=== PATIENT | female | born 1960 | race Caucasian/White ===

== ENCOUNTER 2024-02-14 18:52 | Emergency (ER) | payer OTHER, SELFPAY ==
[2024-02-14 19:46] VITALS: BP 174/94; PULSE 74; RESP 18; TEMP 36.6; O2SAT 98; BMI 22.4
--- NOTE | 2024-02-14 19:46 | ED.GENADULT ---
HPI - General Adult General Chief complaint: General Medical Stated complaint: high blood pressure 167/121 seen at Time Seen by Provider: 02/15/24 00:38 Source: patient Mode of arrival: ambulatory History of Present Illness ED Provider: Dr Linares HPI narrative: 63-year-old female with history of hypertension presents with headache in the triage note that she states for 2 weeks but she informs me that it was 2-3 days without any visual disturbance/speech changes and states that she is currently on medication that she is taking as prescribed. Patient also states that she has been having congestion, lost her voice. Related Data Allergies Allergy/AdvReac Type Severity Reaction Status Date / Time aspirin Allergy Anaphylaxis Verified 02/14/24 19:51 Penicillins [PCN] Allergy Unknown Verified 02/14/24 19:51 Sulfa (Sulfonamide Allergy Anaphylaxis Verified 02/14/24 19:51 Antibiotics) Review of Systems Review of Systems: Pertinent positives and negatives as stated in HPI [facility] Past Medical History Source: nursing notes reviewed Social History Social History Smoked in Last 30 Days: No Use of substances other than those prescribed or required for medical reasons: No Advance Directives: No Advance Directives Information Provided: No Patient : No Physical Exam ED Vital Signs: Vital Signs - 24 hr 02/14/24 19:46 02/14/24 23:12 02/14/24 23:58 Temperature 97.9 F 97.8 F 97.7 F Pulse Rate 74 85 73 Respiratory Rate 18 18 18 Blood Pressure 174/94 H 138/86 138/74 Pulse Oximetry 98 97 99 Oxygen Delivery Method Room Air Room Air Room Air 02/15/24 00:15 02/15/24 01:48 02/15/24 01:49 Temperature 96.9 F 98.0 F 98.0 F Pulse Rate 64 60 60 Respiratory Rate 18 18 18 Blood Pressure 141/84 H 162/89 H 162/89 H Pulse Oximetry 98 98 Oxygen Delivery Method Room Air Room Air BMI result Body Mass Index 22.4 VITAL SIGNS: Reviewed. GENERAL: Well developed, well nourished, in no acute distress. HEAD: Normocephalic/atraumatic EYES: PERRLA, EOMI EARS: Ext canals without abnormality, TMs non-bulging and non-erythematous NOSE: Nares patent bilateral OROPHARYNX: no oral lesions noted, posterior pharynx clear and non-erythematous without noted tonsillar enlargement/erythema/exudates NECK: Supple, no adenopathy LUNGS: Normal breath sounds. No adventitious sounds or accessory muscle use. SpO2<98> CARDIOVASCULAR: Regular rate and rhythm without noted murmurs ABDOMEN: Soft, non-tender, non-distended with bowel sounds. MUSCULOSKELETAL: No tenderness, deformities, or effusions noted on gross inspection. EXTREMITIES: No cyanosis, clubbing or edema. SKIN: Inspection of the skin reveals no rashes NEUROLOGIC: Alert and oriented x 4. Strength and sensation to light touch were grossly intact x 4. Course Course Course Narrative: This is an RME: Additional HPI, ROS, PE not included below will be deferred to primary provider. RME assessment and note performed by: Usha Martini PA-C This is a 65-[id number]-female, with a hx of HTN and polycystic kidney disease, who presents to the ER with complaints of sore throat x 1.5 weeks, headache x 2 weeks. Pt was seen at [facility] for her symptoms and was sent here due to symptoms, BP at urgent care was 158/109. BP is 174/94. She also is reporting sore throat. No fevers. Reporting that she Plan: Labs Medical Decision Making Medical Decision Making [facility] Narrative: 63-year-old female with history and clinical presentation, DDX: Viral illness, no focal findings, at the time my evaluation patient's blood pressure is well controlled and discussed with her following up with the primary care doctor for adjustment of her blood pressure medication. I reviewed all investigations and hematologic indices negative for leukocytosis/anemia or thrombocytopenia. Chemistries are negative for electrolyte or liver enzyme derangements and patient has known CKD secondary to polycystic kidney disease as endorsed by her. Urinalysis negative for UTI. Viral testing negative for influenza/RSV/COVID-19. My interpretation is patient experienced viral illness, with possible medication related hypertension such as decongestants and laryngitis. She is otherwise discharged home. Differential Diagnosis Differential Diagnoses: The differential diagnosis associated with the presentation includes Please see the discussion above Admission/Observation Consideration of admission/observation: Escalation of care including admission/observation considered Please see the discussion above Lab Data [facility] Lab Attestation statement: I reviewed the patient's lab results. Please see the discussion above 02/14/24 20:16 02/14/24 20:16 Labs: Lab Results 02/14/24 Range/Units 20:16 WBC 6.9 (4.8-10.8) X10*3/uL RBC 4.08 L (4.20-5.50) X10*6/uL Hgb 12.4 (12.0-16.0) g/dl Hct 36.8 L (37.0-47.0) % MCV 90.2 (80.0-98.0) fL MCH 30.4 (27.0-33.0) pg MCHC 33.7 (31.0-35.0) g/dl RDW 13.8 (11.0-16.0) % Plt Count 341 (160-400) X10*3/uL MPV 9.3 L (9.4-12.3) fL Immature Gran % (Auto) 0.4 (0.0-0.4) % Neut % (Auto) 59.4 (45-73) % Lymph % (Auto) 23.5 (20-40) % [place] % (Auto) 10.8 (2-11) % Eos % (Auto) 4.4 H (0-4) % Baso % (Auto) 1.5 (0-2) % Lymph # (Auto) 1.6 (1.2-4.9) X10*3/uL [place] # (Auto) 0.7 (0.1-1.2) X10*3/uL Eos # (Auto) 0.3 (0.0-0.4) X10*3/uL Baso # (Auto) 0.1 (0.0-0.2) X10*3/uL Abs Immat Gran (auto) 0.03 (0.00-0.03) X10*3/uL Absolute Neuts (auto) 4.1 (2.0-8.3) x10*3/uL Absolute Nucleated RBC 0.000 (0.0-0.012) X10*3/uL Nucleated RBC % (auto) 0.0 (0.0-0.2) /100WBC Sodium 143 (135-145) mmol/L Potassium 4.0 (3.3-5.1) mmol/L Chloride 104 (96-108) mmol/L Carbon Dioxide 28 (22-29) mmol/L Anion Gap 15 (12-20) BUN 30 H (9-16) mg/dL Creatinine 1.42 H (0.5-1.4) mg/dL Estim Creat Clear Calc 38.4 Estimated GFR 37 Random Glucose 94 (60-115) mg/dL Calcium 10.1 (8.4-10.2) mg/dL Total Bilirubin 0.4 (0.0-1.0) mg/dL Direct Bilirubin 0.1 (0.0-0.5) mg/dL AST 18 (5-31) U/L ALT 17 (0-31) U/L Alkaline Phosphatase 76 (39-117) U/L Total Protein 7.4 (6.5-8.0) g/dL Albumin 4.2 (3.5-5.0) g/dL Urine Color Yellow Urine Appearance Clear Urine pH 6.5 (5.0-9.0) Ur Specific [place] 1.015 (1.005-1.025) Urine Protein Negative (Neg-Trace) mg/dL Urine Glucose (UA) Negative (Negative) mg/dL Urine Ketones Negative (Negative) mg/dL Urine Blood Negative (Negative) Urine Nitrite Negative (Negative) Ur Leukocyte Esterase Small (1+) H (Negative) Urine RBC 0-2 (0-2) /HPF Urine WBC 0-5 (0-5) /HPF Ur Squamous Epith Cells 0-2 (0-2) /HPF Urine Bacteria None Seen (None Seen) Hyaline Casts 0-2 (0-2) /LPF Influenza Type A (PCR) NEGATIVE (Negative) Influenza Type B (PCR) NEGATIVE (Negative) RSV RNA Qual (PCR) NEGATIVE (Negative) SARS-CoV-2 RNA (RT-PCR) NEGATIVE (Negative) Chronic Conditions Patient?s care impacted by: Hypertension Discharge Plan Discharge Clinical Impression: Viral syndrome, Laryngitis Patient Disposition: Home, Self-Care Instructions: Laryngitis (ED), Viral Syndrome (ED) Additional Instructions: Follow-up with your primary care doctor to discuss possible blood pressure medication adjustment. Continue to take your medication as prescribed. Return to the ER for any worsening symptoms. Stand Alone Forms: Work/School Release Interventions: ED Discharge Assessment Last Done: 02/15/24 01:49 Discharge Date/Time: 02/15/24 01:50 Print Language: Tamazight
[2024-02-14 20:39] LABS: MANUAL DIFF FLAG NO
[2024-02-14 20:43] LABS: Appearance Urine Clear; Basophils Absolute Auto 0.1 X10*3/uL (0.0-0.2); Basophils Percent Auto 1.5 % (0-2); Color Urine Yellow; Eosinophils Absolute Auto 0.3 X10*3/uL (0.0-0.4); Eosinophils Percent Auto 4.4 % (0-4); Glucose Urine UA Negative (Negative); Hematocrit 36.8 % (37.0-47.0); Hemoglobin 12.4 g/dl (12.0-16.0); Imm Gran Abs Auto 0.03 X10*3/uL (0.00-0.03); Imm Gran Pct Auto 0.4 % (0.0-0.4); Leukocyte Esterase Urine Small (1+) (Negative); Lymphocytes Absolute Auto 1.6 X10*3/uL (1.2-4.9); Lymphocytes Percent Auto 23.5 % (20-40); Mean Corpuscular HGB Conc 33.7 g/dl (31.0-35.0); Mean Corpuscular Hemoglobin 30.4 pg (27.0-33.0); Mean Corpuscular Volume 90.2 fL (80.0-98.0); Mean Platelet Volume 9.3 fL (9.4-12.3); Monocytes Absolute Auto 0.7 X10*3/uL (0.1-1.2); Monocytes Percent Auto 10.8 % (2-11); Neutrophils Absolute Auto 4.1 x10*3/uL (2.0-8.3); Neutrophils Percent Auto 59.4 % (45-73); Nitrite Urine Negative (Negative); PH 6.5 (5.0-9.0); Platelet Count 341 X10*3/uL (160-400); Red Blood Count 4.08 X10*6/uL (4.20-5.50); Red Cell Distribution Width 13.8 % (11.0-16.0); Specific Gravity - Urine 1.015 (1.005-1.025); UMIC TRIGGER UACC YES; Urine Blood Negative (Negative); Urine Ketones Negative (Negative); Urine Protein Negative (Neg-Trace); White Blood Count 6.9 X10*3/uL (4.8-10.8)
[2024-02-14 20:58] LABS: Bacteria Urine None Seen (None Seen); Hyaline Casts Urine 0-2 /LPF (0-2); RBC Urine 0-2 /HPF (0-2); Squamous Epithelial Cell Urine 0-2 /HPF (0-2); UACC Culture Trigger YES; WBC Urine 0-5 /HPF (0-5)
[2024-02-14 21:04] LABS: Alanine Aminotransferase 17 U/L (0-31); Albumin Level 4.2 g/dL (3.5-5.0); Alkaline Phosphatase 76 U/L (39-117); Anion Gap 15 (12-20); Aspartate Amino Transferase 18 U/L (5-31); Bilirubin Direct 0.1 mg/dL (0.0-0.5); Bilirubin Total 0.4 mg/dL (0.0-1.0); Blood Urea Nitrogen 30 mg/dL (9-16); Calcium 10.1 mg/dL (8.4-10.2); Carbon Dioxide 28 mmol/L (22-29); Chloride 104 mmol/L (96-108); Creatinine Clr Calc Pharmacy 38.4; Estimated Glomerular Filt Rate 37; Glucose Random 94 mg/dL (60-115); Sodium 143 mmol/L (135-145); Total Protein 7.4 g/dL (6.5-8.0)
[2024-02-14 21:24] LABS: Influenza A PCR NEGATIVE (Negative); Influenza B PCR NEGATIVE (Negative); Resp Syncy Virus RNA Qual PCR NEGATIVE (Negative); SARS COV2 PCR INHOUSE NEGATIVE (Negative)
[2024-02-14 23:12] VITALS: BP 138/86; PULSE 85; RESP 18; TEMP 36.6; O2SAT 97
[2024-02-14 23:58] VITALS: BP 138/74; PULSE 73; RESP 18; TEMP 36.5; O2SAT 99
[2024-02-15 00:15] VITALS: BP 141/84; PULSE 64; RESP 18; TEMP 36.1
[2024-02-15 01:48] VITALS: BP 162/89; PULSE 60; RESP 18; TEMP 36.7; O2SAT 98
[2024-02-15 01:49] VITALS: BP 162/89; PULSE 60; RESP 18; TEMP 36.7; O2SAT 98
== END 2024-02-15 01:50 | disposition home or self-care (01) ==
PROVIDERS: Physician Assistant Medical; Emergency Provider Student in an Organized Health Care Education/Training Program
DX: J04.0 Acute laryngitis (principal); B34.9 Viral infection, unspecified; R51.9 Headache, unspecified; I10 Essential (primary) hypertension
CPT/HCPCS: 0241U; 80048; 80076; 81001; 85025; 87086; 99283; 99284

== ENCOUNTER 2024-12-25 21:42 | Emergency (ER) | payer MEDICAID, SELFPAY ==
[2024-12-25 22:03] VITALS: BP 143/105; PULSE 139; RESP 16; TEMP 37.2; O2SAT 98; BMI 24.0
--- NOTE | 2024-12-25 22:09 | ECG_ITS ---
Test Reason : tachycardia Blood Pressure : */* mmHG Vent. Rate : 125 BPM Atrial Rate : 125 BPM P-R Int : 158 ms QRS Dur : 74 ms QT Int : 278 ms P-R-T Axes : 47 98 24 degrees QTcB Int : 401 ms Sinus tachycardia Rightward axis cannot exclude old Anteroseptal infarct , age undetermined Abnormal ECG No previous ECGs available Referred By: Generic ED Physician Electronically Signed By: LEANN RYAN
[2024-12-25 22:28] LABS: MANUAL DIFF FLAG NO
[2024-12-25 22:29] LABS: Basophils Absolute Auto 0.1 X10*3/uL (0.0-0.2); Basophils Percent Auto 0.5 % (0-2); Eosinophils Absolute Auto 0.2 X10*3/uL (0.0-0.4); Eosinophils Percent Auto 1.4 % (0-4); Hematocrit 36.9 % (37.0-47.0); Hemoglobin 12.9 g/dl (12.0-16.0); Imm Gran Abs Auto 0.04 X10*3/uL (0.00-0.03); Imm Gran Pct Auto 0.4 % (0.0-0.4); Lymphocytes Absolute Auto 1.4 X10*3/uL (1.2-4.9); Lymphocytes Percent Auto 12.3 % (20-40); Mean Corpuscular Hemoglobin 30.6 pg (27.0-33.0); Mean Corpuscular Volume 87.4 fL (80.0-98.0); Mean Platelet Volume 9.4 fL (9.4-12.3); Monocytes Percent Auto 8.9 % (2-11); Neutrophils Absolute Auto 8.4 x10*3/uL (2.0-8.3); Neutrophils Percent Auto 76.5 % (45-73); Platelet Count 297 X10*3/uL (160-400); Red Blood Count 4.22 X10*6/uL (4.20-5.50); Red Cell Distribution Width 13.9 % (11.0-16.0)
[2024-12-25 22:30] LABS: Appearance Urine Turbid; Color Urine Yellow; Glucose Urine UA Negative (Negative); Leukocyte Esterase Urine Large (3+) (Negative); Nitrite Urine Negative (Negative); Specific Gravity - Urine 1.015 (1.005-1.025); UMIC TRIGGER UACC YES; Urine Blood Large (3+) (Negative); Urine Ketones Negative (Negative); Urine Protein 300 (3+) mg/dL (Neg-Trace)
[2024-12-25 22:35] LABS: Bacteria Urine 4+ (None Seen); Hyaline Casts Urine 0-2 /LPF (0-2); RBC Urine >20 /HPF (0-2); Squamous Epithelial Cell Urine 0-2 /HPF (0-2); UACC Culture Trigger YES; WBC Urine >50 /HPF (0-5)
[2024-12-25 22:44] LABS: Alanine Aminotransferase 14 U/L (0-31); Albumin Level 4.2 g/dL (3.5-5.0); Alkaline Phosphatase 72 U/L (39-117); Anion Gap 16 (12-20); Aspartate Amino Transferase 17 U/L (5-31); Bilirubin Total 0.4 mg/dL (0.0-1.0); Blood Urea Nitrogen 30 mg/dL (9-16); Calcium 9.8 mg/dL (8.4-10.2); Carbon Dioxide 25 mmol/L (22-29); Chloride 104 mmol/L (96-108); Creatinine Clr Calc Pharmacy 32.5; Estimated Glomerular Filt Rate 31; Glucose Random 105 mg/dL (60-115); Potassium 3.5 mmol/L (3.3-5.1); Sodium 141 mmol/L (135-145)
[2024-12-25 22:51] LABS: Troponin-I High Sensitivity 5.3 ng/L (<3.5-17.0)
--- NOTE | 2024-12-26 01:48 | ED.FEMALEGU ---
HPI - Female Genitourinary General Chief complaint: Urogenital-Female Stated complaint: urinating blood / dizzy / pain when urinating Time Seen by Provider: 12/25/24 23:20 Source: patient Limitations: no limitations History of Present Illness ED Provider: Karlie Fontana PA-C HPI Narrative: 64-year-old female presents with dysuria x2 days. Associated burning with urination, hematuria. Patient also has developed vaginal itching. Denies discharge. Denies abdominal pain, back pain, nausea, vomiting, fever. Related Data Previous Rx's ?Medication ?Instructions ?Recorded cephalexin 500 mg capsule 500 mg PO BID #13 caps 12/26/24 phenazopyridine 200 mg tablet 200 mg PO TID PRN pain #10 tabs 12/26/24 (Pyridium) Allergies Allergy/AdvReac Type Severity Reaction Status Date / Time aspirin Allergy Anaphylaxis Verified 12/25/24 22:06 Penicillins [PCN] Allergy Unknown Verified 12/25/24 22:06 Sulfa (Sulfonamide Allergy Anaphylaxis Verified 12/25/24 22:06 Antibiotics) Review of Systems Review of Systems: Yes all other systems are reviewed and are negative Constitutional: Constitutional: Denies fatigue and Denies fever(s) Cardiovascular: Cardiovascular: Denies chest pain Gastrointestinal: Gastrointestinal: Denies abdominal pain Genitourinary: Genitourinary: Reports hematuria, Reports dysuria, Denies flank pain and Reports vaginal pruritus Musculoskeletal: Musculoskeletal: Denies back pain Endocrine: Endocrine: Denies fatigue [facility] Past Medical History Attestation statement: The following information was validated with the patient. Social History Social History Advance Directives: No Advance Directives Information Provided: Yes Do you have a plan to hurt others: No Plan Physical Exam Vital Signs: Vital Signs: Last Vital Signs Temp 98.9 F 12/25/24 22:03 Pulse 139 H 12/25/24 22:03 Resp 16 12/25/24 22:03 BP 143/105 H 12/25/24 22:03 Pulse Ox 98 12/25/24 22:03 O2 Del Method Room Air 12/25/24 22:03 BMI result Body Mass Index 24.0 Const: Other: Alert well-appearing Orientation/consciousness: patient oriented x3 Resp: Effort & Inspection: normal respiratory effort Cardio: Other: Normal peripheral perfusion GI: Other: Abdomen is soft, nondistended no guarding : Other: External genitalia appears chafed, mildly erythematous no discharge noted General: Yes no CVA tenderness Back/Spine/Pelvis: Back: no CVA tenderness Skin: Other: Warm dry no rash Neuro: General: patient oriented x3, gait normal, no focal motor deficits and CN's II-XI intact bilaterally Psych: Other: Cooperative Medical Decision Making Medical Decision Making MDM Narrative: 64-year-old female with a history of kidney stones presents with dysuria x2 days. Associated burning with urination, hematuria. Patient also has developed vaginal itching. Denies discharge. Denies abdominal pain, back pain, nausea, vomiting, fever. Problem: Kidney stones History: Per patient I have considered the following differential diagnoses: Vaginal Vandana infection UTI, pyelonephritis, renal colic Plan: Screening labs including urinalysis were obtained from triage, the patient has a UTI. Her renal function is subtly bumped, but not an JESICA. She has no back or flank pain, no nausea vomiting to suggest renal colic. She has no CVA tenderness or fever to suggest pyelonephritis. She has suspect symptoms of vaginal candidal infection. We will be treating her for UTI, vaginitis. I have independently reviewed the following tests: Labs: Slight leukocytosis, not anemic, no electrolyte abnormality, creatinine subtly bumped from her baseline, urine infected Lab Data 12/25/24 22:21 12/25/24 22:21 Labs: Lab Results 12/25/24 Range/Units 22:21 WBC 11.0 H (4.8-10.8) X10*3/uL RBC 4.22 (4.20-5.50) X10*6/uL Hgb 12.9 (12.0-16.0) g/dl Hct 36.9 L (37.0-47.0) % MCV 87.4 (80.0-98.0) fL MCH 30.6 (27.0-33.0) pg MCHC 35.0 (31.0-35.0) g/dl RDW 13.9 (11.0-16.0) % Plt Count 297 (160-400) X10*3/uL MPV 9.4 (9.4-12.3) fL Immature Gran % (Auto) 0.4 (0.0-0.4) % Neut % (Auto) 76.5 H (45-73) % Lymph % (Auto) 12.3 L (20-40) % [place] % (Auto) 8.9 (2-11) % Eos % (Auto) 1.4 (0-4) % Baso % (Auto) 0.5 (0-2) % Lymph # (Auto) 1.4 (1.2-4.9) X10*3/uL [place] # (Auto) 1.0 (0.1-1.2) X10*3/uL Eos # (Auto) 0.2 (0.0-0.4) X10*3/uL Baso # (Auto) 0.1 (0.0-0.2) X10*3/uL Abs Immat Gran (auto) 0.04 H (0.00-0.03) X10*3/uL Absolute Neuts (auto) 8.4 H (2.0-8.3) x10*3/uL Absolute Nucleated RBC 0.000 (0.0-0.012) X10*3/uL Nucleated RBC % (auto) 0.0 (0.0-0.2) /100WBC Sodium 141 (135-145) mmol/L Potassium 3.5 (3.3-5.1) mmol/L Chloride 104 (96-108) mmol/L Carbon Dioxide 25 (22-29) mmol/L Anion Gap 16 (12-20) BUN 30 H (9-16) mg/dL Creatinine 1.66 H (0.5-1.4) mg/dL Estim Creat Clear Calc 32.5 Estimated GFR 31 Random Glucose 105 (60-115) mg/dL Calcium 9.8 (8.4-10.2) mg/dL Total Bilirubin 0.4 (0.0-1.0) mg/dL AST 17 (5-31) U/L ALT 14 (0-31) U/L Alkaline Phosphatase 72 (39-117) U/L Troponin I High Sens 5.3 (<3.5-17.0) ng/L Total Protein 7.0 (6.5-8.0) g/dL Albumin 4.2 (3.5-5.0) g/dL Urine Color Yellow Urine Appearance Turbid Urine pH 6.0 (5.0-9.0) Ur Specific [place] 1.015 (1.005-1.025) Urine Protein 300 (3+) H (Neg-Trace) mg/dL Urine Glucose (UA) Negative (Negative) mg/dL Urine Ketones Negative (Negative) mg/dL Urine Blood Large (3+) H (Negative) Urine Nitrite Negative (Negative) Ur Leukocyte Esterase Large (3+) H (Negative) Urine RBC >20 H (0-2) /HPF Urine WBC >50 H (0-5) /HPF Ur Squamous Epith Cells 0-2 (0-2) /HPF Urine Bacteria 4+ (None Seen) Hyaline Casts 0-2 (0-2) /LPF Discharge Plan Discharge Clinical Impression: Urinary tract infection, Candidiasis of vagina Patient Disposition: Home, Self-Care Instructions: Urinary Tract Infection in Women (ED), Yeast Infection (ED) Additional Instructions: You were found to have a urinary tract infection and a vaginal yeast infection. See home care instructions. You were given a 1 time dose of antifungal medication here in the emergency department. You can purchase [id number] vaginal yeast infection cream at any pharmacy. Take the cephalexin as directed for your urinary tract infection. Use the Pyridium as needed for urinary pain. Follow up with your primary care provider as needed. Prescriptions: New phenazopyridine [Pyridium] 200 mg tablet 200 mg PO TID PRN (Reason: pain) Qty: 10 0RF cephalexin 500 mg capsule 500 mg PO BID Qty: 13 0RF Print Language: Guamanian
[2024-12-26] MEDS: cephALEXin 500 MG CAPSULE PO (02:19)
[2024-12-26] MEDS: Fluconazole 150 MG TABLET PO (02:19)
[2024-12-26] MEDS: Phenazopyridine HCL 200 MG TABLET PO (02:19)
[2024-12-26 02:24] VITALS: BP 135/93; PULSE 91; RESP 18; TEMP 36.7; O2SAT 97
[2024-12-26 02:26] VITALS: BP 135/93; PULSE 91; RESP 18; TEMP 36.7; O2SAT 97
== END 2024-12-26 02:27 | disposition home or self-care (01) ==
PROVIDERS: Emergency Provider Emergency Medicine; PCP Psychiatry & Neurology Behavioral Neurology & Neuropsychiatry
DX: N39.0 Urinary tract infection, site not specified (principal); B37.31 Acute candidiasis of vulva and vagina; R31.9 Hematuria, unspecified; R00.0 Tachycardia, unspecified; L29.2 Pruritus vulvae; R42 Dizziness and giddiness; R30.0 Dysuria; Z79.899 Other long term (current) drug therapy
CPT/HCPCS: 36415; 80053; 81001; 84484; 85025; 87086; 87088; 87186; 93005; 99283; 99285

== ENCOUNTER → 2024-12-25 22:09 | Outpatient (BNV) | payer MEDICAID, SELFPAY | PROVIDERS: Emergency Provider Emergency Medicine; PCP Psychiatry & Neurology Behavioral Neurology & Neuropsychiatry; Visit Provider Internal Medicine | DX: R00.0 Tachycardia, unspecified (principal) | CPT/HCPCS: 93010 ==

== ENCOUNTER 2024-12-28 10:58 | Emergency (ER) | payer MEDICAID, SELFPAY ==
[2024-12-28] VITALS (7 sets, daily range): BP systolic 130–162; BP diastolic 88–112; PULSE 95–133; RESP 15–20; TEMP 36.5–37.4; O2SAT 94–99; BMI 22.8
--- NOTE | 2024-12-28 | ECG_ITS ---
Test Reason : TACHY Blood Pressure : */* mmHG Vent. Rate : 127 BPM Atrial Rate : 127 BPM P-R Int : 156 ms QRS Dur : 90 ms QT Int : 290 ms P-R-T Axes : 16 -37 27 degrees QTcB Int : 421 ms Sinus tachycardia Left axis deviation Possible Anterior infarct (cited on or before 25-Dec-2024) Abnormal ECG When compared with ECG of 25-Dec-2024 22:12, QRS axis Shifted left Referred By: Elenita Chun Electronically Signed By: LEANN RYAN
--- NOTE | ~2024-12-28 | CT_ITS ---
EXAMINATION: CT ABDOMEN PELVIS WITHOUT IV CONTRAST HISTORY: L flank pain. UTI white count COMPARISON: There are no prior studies for comparison. TECHNIQUE: CT scan of the abdomen and pelvis was performed without contrast using standard departmental protocol. Coronal and sagittal reformatted images were generated and reviewed. Oral contrast material was not administered per department protocol. This CT exam was performed with one or more of the following dose reduction techniques: automated exposure control, adjustment of the mA and/or kV according to patient size, use of iterative reconstruction technique. DLP: 459 mGy-cm FINDINGS: LOWER CHEST: The visualized lung bases are clear. There is no pleural effusion. CARDIOVASCULATURE: The heart is normal in size. There is no pericardial effusion. LIVER: The liver is normal in size and contour. There is a 3.3 cm cyst in the right lobe. Additional smaller cysts are noted. GALLBLADDER / BILE DUCTS: The gallbladder is surgically absent. There is no intra or extrahepatic biliary ductal dilatation. SPLEEN: The spleen is normal in size and has an unremarkable unenhanced appearance. PANCREAS: The pancreas has an unremarkable unenhanced appearance. ADRENAL GLANDS: Unremarkable. KIDNEYS/RETROPERITONEUM: Innumerable bilateral renal cysts are noted and cystoscopy with polycystic kidney disease. The largest cyst on the right measures 5.5 cm in size. The largest cyst on the left measures 8.4 cm in size. Scattered calcifications in both kidneys may be related to cyst mccoy. There is no hydronephrosis. The ureters are normal in caliber. No ureteral calculi are identified. LYMPH NODES: No retroperitoneal lymphadenopathy is identified in the abdomen or pelvis. VASCULATURE: The abdominal aorta is normal in caliber. MESENTERY/PERITONEUM: No free fluid. No masses. There is no free intraperitoneal gas. STOMACH: The stomach is collapsed, limiting evaluation. SMALL BOWEL: The small bowel is normal in caliber. COLON: The colon is unremarkable. APPENDIX: Normal. URINARY BLADDER/PELVIC ORGANS: The urinary bladder is collapsed, limiting evaluation. There are numerous calcified masses in the uterus measuring up to 7.1 cm in size, consistent with fibroids. BONES / SOFT TISSUES: No suspicious bony or soft tissue abnormalities. CT/CT abdomen pelvis wo IV con IMPRESSION: 1. Polycystic kidney disease. No definite evidence of nephrolithiasis or ureteral obstruction. 2. Fibroid uterus as described. Electronically signed by: Maciej Hassan MD 12/28/2024 02:03 PM EDT RP
--- NOTE | 2024-12-28 11:12 | ED.GENADULT ---
HPI - General Adult General Chief complaint: Urogenital-Female Stated complaint: urine infection back pain hard to walk Time Seen by Provider: 12/28/24 13:06 Source: patient Mode of arrival: ambulatory Limitations: no limitations History of Present Illness ED Provider: ELENITA CHUN PA-C HPI narrative: 64 year old female with pmhx significant for polycystic kidney disease, GERD, HTN presents to the ED today for evaluation of left flank pain x24 hours. No radiation. She reports associated suprapubic abdominal discomfort. Reports nausea with one episode of vomiting on arrival to ED. Denies any fever, chills, diarrhea, constipation, vaginal discharge or bleeding. She reports history of uterine fibroids. She was evaluated at our facility on 12/26/24 for dysuria and hematuria. She was diagnosed with a UTI at that time. She was discharged home on keflex and pyridium. She states she has been taking pyridium however never picked up or started her antibiotic. Related Data Previous Rx's ?Medication ?Instructions ?Recorded cephalexin 500 mg capsule 500 mg PO BID #13 caps 12/26/24 phenazopyridine 200 mg tablet 200 mg PO TID PRN pain #10 tabs 12/26/24 (Pyridium) cefpodoxime 200 mg tablet 200 mg PO BID 10 days #20 tabs 12/28/24 Allergies Allergy/AdvReac Type Severity Reaction Status Date / Time aspirin Allergy Anaphylaxis Verified 12/28/24 11:11 Iodinated Contrast Media Allergy Anaphylaxis Verified 12/28/24 13:20 [IV Contrast Dye] parsley Allergy Facial Verified 12/28/24 11:13 Swelling Penicillins [PCN] Allergy Unknown Verified 12/28/24 11:11 Sulfa (Sulfonamide Allergy Anaphylaxis Verified 12/28/24 11:11 Antibiotics) Review of Systems Review of Systems: Yes all other systems are reviewed and are negative PMFSH Past Medical History Attestation statement: The following information was validated with the patient. Source: old records reviewed and nursing notes reviewed Social History Social History Unable to assess alcohol history related to: Unknown Use of substances other than those prescribed or required for medical reasons: Unknown Advance Directives: No Advance Directives Information Provided: Yes Do you have a plan to hurt others: No Plan Patient : No Physical Exam ED Vital Signs: Vital Signs - 24 hr 12/28/24 11:03 12/28/24 13:55 12/28/24 13:57 Temperature 97.7 F 99.3 F Pulse Rate 99 133 H Respiratory Rate 20 16 Blood Pressure 162/112 H 144/101 H 144/101 H Pulse Oximetry 99 94 Oxygen Delivery Method Room Air Room Air 12/28/24 15:06 12/28/24 15:48 12/28/24 16:35 Temperature 98.2 F Pulse Rate 95 98 Respiratory Rate 18 15 Blood Pressure 130/88 Pulse Oximetry 97 Oxygen Delivery Method Room Air 12/28/24 16:44 Temperature 98.2 F Pulse Rate 95 Respiratory Rate 15 Blood Pressure 130/88 Pulse Oximetry 97 Oxygen Delivery Method Room Air BMI result Body Mass Index 22.8 vital signs stable, afebrile General: Well appearing, in no acute distress. Skin: Warm, dry, intact. No rashes or lesions. Head: Normocephalic, atraumatic. EENT: Hearing is intact b/l. Conjunctiva clear. PERRLA. EOM intact. Moist mucous membranes.? Cardiac: Chest wall symmetric. RRR Lungs: Normal respiratory effort without accessory muscle use. CTA bilaterally. Abdomen: soft, non-tender, non-distended. No rebound tenderness or guarding. Positive BS x4. +left cvat. Back: No midline spinous or paraspinal tenderness. No step off deformity. Ext: Upper and lower extremities atraumatic, without tenderness, deformity, swelling or erythema Neuro: AOx3. Normal speech. Ambulating with steady gait Course Course Course Narrative: This is a rapid medical exam performed by Emmanuel Díaz NP: Additional HPI, ROS, PE not included below will be deferred to primary provider. 12/28/24 11:12 Patient is a 64-year-old female with history of polycystic kidneys presenting with complaint of lower back and left flank pain. Seen here 12/26 discharged on keflex and pyridium. Urine cx shows e. coli susceptible to cephalosporins. Plan: labs, UA Reevaluation(s) Reevaluation #1: CBC with slight leukocytosis to 11.3 with left shift. No anemia. H&H stable. Chemistry without acute electrolyte abnormality requiring intervention. Her renal function is around her baseline white count for polycystic kidney disease. Liver function WNL. Lactic acid WNL at 1.4. Urine shows moderate amount of blood, positive nitrites, large leukocyte esterase, over 20 RBCs, over 50 WBCs, 0-2 squamous epithelial cells and 4+ urine bacteria. No clumps. CT abdomen/pelvis shows innumerable bilateral renal cyst noted suggestive of polycystic kidney disease, largest cyst on the right measuring 5.5 cm and largest cyst on the left measuring 8.4 cm. Scattered calcifications in both kidneys, no hydronephrosis, no ureteral calculi or obstruction. No bowel obstruction. Normal appendix. Bladder unremarkable. There are numerous calcified masses in the uterus measuring up to 7.1 cm in size consistent with fibroids. > pain well-controlled with Tylenol, Dilaudid and lidocaine patch. Blood pressure improved with home dose of amlodipine. Given positive UTI with left CVAT, will treat for suspected pyelonephritis. One dose of IV ceftriaxone and IVF given in the ED. Will send her home on a course of cefpodoxime. Patient is agreeable. Patient has remained stable throughout ED visit today. Discussed worrisome signs and symptoms and when to return to the ED. All questions answered at this time. Patient is agreeable with disposition and stable for discharge. Medications Administered Discontinued Medications Generic Name Dose Route Start Last Admin Trade Name Freq PRN Reason Stop Dose Admin Acetaminophen 975 mg 12/28/24 12:15 12/28/24 12:18 Acetaminophen 325 Mg Tablet PO 12/28/24 12:16 975 mg ONCE ONE Administration Amlodipine Besylate 2.5 mg 12/28/24 13:27 12/28/24 13:57 Amlodipine Besylate 2.5 Mg Tablet PO 12/28/24 13:28 2.5 mg ONCE ONE Administration Protocol Ceftriaxone Sodium 1 gm 12/28/24 15:00 12/28/24 15:06 Ceftriaxone Sodium 1 Gm Vial IVPUSH 12/28/24 15:01 1 gm ONCE ONE Administration Cyclobenzaprine HCl 10 mg 12/28/24 14:29 12/28/24 14:40 Cyclobenzaprine Hcl 10 Mg Tablet PO 12/28/24 14:30 10 mg ONCE ONE Administration Hydromorphone HCl 0.5 mg 12/28/24 15:01 12/28/24 15:06 Hydromorphone Hcl 0.5 Mg/0.5 Ml Syringe IVPUSH 12/28/24 15:02 0.5 mg ONCE ONE Administration Protocol Sodium Chloride 1,000 mls @ 999 mls/hr 12/28/24 15:00 12/28/24 15:06 Ns IV 12/28/24 16:00 999 mls/hr .Q1H1M WINIFRED Administration Lidocaine 1 patch 12/28/24 14:29 12/28/24 14:40 Lidocaine 4 % Patch Adh..Patch TRANSDERMA 12/28/24 14:30 1 patch ONCE ONE Administration Protocol Ondansetron HCl 4 mg 12/28/24 14:01 12/28/24 14:26 Ondansetron Hcl 4 Mg/2 Ml Vial IVPUSH 12/28/24 14:02 4 mg ONCE ONE Administration Medical Decision Making Medical Decision Making [facility] Narrative: 64 year old female with pmhx significant for polycystic kidney disease, GERD, HTN presents to the ED today for evaluation of left flank pain x24 hours. Vital signs stable. She is nontoxic appearing in no acute distress. On exam, abdomen is soft, nondistended, nontender to palpation without rebound tenderness or guarding. There is left-sided CVAT. Differential diagnosis includes renal colic, nephrolithiasis, pyelonephritis, gastroenteritis, gastritis, PUD. Abdominal exam without peritoneal signs. No evidence of acute abdomen at this time. Well appearing. Less likely to represent acute pancreatitis, perforated ulcer/ GI bleed, acute infectious processes (pneumonia), vascular catastrophe, bowel obstruction or viscus perforation. Presentation not consistent with other acute, emergent causes of abdominal pain at this time. Plan: labs, UA, pain control, CT a/p, serial reassessment Differential Diagnosis Differential Diagnoses: The differential diagnosis associated with the presentation includes As above Admission/Observation Not indicated Lab Data [facility] Lab Attestation statement: I reviewed the patient's lab results. As above 12/28/24 11:25 12/28/24 11:25 Labs: Lab Results 12/28/24 Range/Units 11:25 WBC 11.3 H (4.8-10.8) X10*3/uL RBC 4.51 (4.20-5.50) X10*6/uL Hgb 13.6 (12.0-16.0) g/dl Hct 40.1 (37.0-47.0) % MCV 88.9 (80.0-98.0) fL MCH 30.2 (27.0-33.0) pg MCHC 33.9 (31.0-35.0) g/dl RDW 13.9 (11.0-16.0) % Plt Count 305 (160-400) X10*3/uL MPV 9.7 (9.4-12.3) fL Immature Gran % (Auto) 0.4 (0.0-0.4) % Neut % (Auto) 80.7 H (45-73) % Lymph % (Auto) 7.8 L (20-40) % [place] % (Auto) 9.3 (2-11) % Eos % (Auto) 1.3 (0-4) % Baso % (Auto) 0.5 (0-2) % Lymph # (Auto) 0.9 L (1.2-4.9) X10*3/uL [place] # (Auto) 1.1 (0.1-1.2) X10*3/uL Eos # (Auto) 0.2 (0.0-0.4) X10*3/uL Baso # (Auto) 0.1 (0.0-0.2) X10*3/uL Abs Immat Gran (auto) 0.05 H (0.00-0.03) X10*3/uL Absolute Neuts (auto) 9.1 H (2.0-8.3) x10*3/uL Absolute Nucleated RBC 0.000 (0.0-0.012) X10*3/uL Nucleated RBC % (auto) 0.0 (0.0-0.2) /100WBC Sodium 144 (135-145) mmol/L Potassium 3.4 (3.3-5.1) mmol/L Chloride 103 (96-108) mmol/L Carbon Dioxide 28 (22-29) mmol/L Anion Gap 16 (12-20) BUN 30 H (9-16) mg/dL Creatinine 1.46 H (0.5-1.4) mg/dL Estim Creat Clear Calc 36.9 Estimated GFR 36 Random Glucose 109 (60-115) mg/dL Lactic Acid 1.4 (0.5-2.0) mmol/L Calcium 10.0 (8.4-10.2) mg/dL Total Bilirubin 0.6 (0.0-1.0) mg/dL AST 17 (5-31) U/L ALT 14 (0-31) U/L Alkaline Phosphatase 79 (39-117) U/L Total Protein 7.8 (6.5-8.0) g/dL Albumin 4.5 (3.5-5.0) g/dL Urine Color [place] Urine Appearance Turbid Urine pH 6.0 (5.0-9.0) Ur Specific [place] 1.020 (1.005-1.025) Urine Protein 300 (3+) H (Neg-Trace) mg/dL Urine Glucose (UA) Negative (Negative) mg/dL Urine Ketones Negative (Negative) mg/dL Urine Blood Moderate (2+) H (Negative) Urine Nitrite Positive H (Negative) Ur Leukocyte Esterase Large (3+) H (Negative) Urine RBC >20 H (0-2) /HPF Urine WBC >50 H (0-5) /HPF Ur Squamous Epith Cells 0-2 (0-2) /HPF Urine Bacteria 4+ (None Seen) Hyaline Casts 0-2 (0-2) /LPF Independent Interpretation I performed an independent interpretation of an: EKG and CT Scan Interpretation: EKG showing sinus tachycardia with a rate of 127 beats per minute, QT to 90, QTC 421, no acute ischemic changes or ST elevation CT abdomen/pelvis showing multiple cysts to bilateral kidneys Radiology Impression Discussion of test interpretation with radiology: I have reviewed the radiologist's reading. Radiologist Impression: Procedure(s): CT abdomen pelvis wo IV con Accession Number(s): [id number] cc: Elenita Chun; CASSY SANON MD~ Report Number: [id number]: Total DLP = 459.00 mGy-cm EXAMINATION: CT ABDOMEN PELVIS WITHOUT IV CONTRAST HISTORY: L flank pain. UTI white count COMPARISON: There are no prior studies for comparison. TECHNIQUE: CT scan of the abdomen and pelvis was performed without contrast using standard departmental protocol. Coronal and sagittal reformatted images were generated and reviewed. Oral contrast material was not administered per department protocol. This CT exam was performed with one or more of the following dose reduction techniques: automated exposure control, adjustment of the mA and/or kV according to patient size, use of iterative reconstruction technique. DLP: 459 mGy-cm FINDINGS: LOWER CHEST: The visualized lung bases are clear. There is no pleural effusion. CARDIOVASCULATURE: The heart is normal in size. There is no pericardial effusion. LIVER: The liver is normal in size and contour. There is a 3.3 cm cyst in the right lobe. Additional smaller cysts are noted. GALLBLADDER / BILE DUCTS: The gallbladder is surgically absent. There is no intra or extrahepatic biliary ductal dilatation. SPLEEN: The spleen is normal in size and has an unremarkable unenhanced appearance. PANCREAS: The pancreas has an unremarkable unenhanced appearance. ADRENAL GLANDS: Unremarkable. KIDNEYS/RETROPERITONEUM: Innumerable bilateral renal cysts are noted and cystoscopy with polycystic kidney disease. The largest cyst on the right measures 5.5 cm in size. The largest cyst on the left measures 8.4 cm in size. Scattered calcifications in both kidneys may be related to cyst mccoy. There is no hydronephrosis. The ureters are normal in caliber. No ureteral calculi are identified. LYMPH NODES: No retroperitoneal lymphadenopathy is identified in the abdomen or pelvis. VASCULATURE: The abdominal aorta is normal in caliber. MESENTERY/PERITONEUM: No free fluid. No masses. There is no free intraperitoneal gas. STOMACH: The stomach is collapsed, limiting evaluation. SMALL BOWEL: The small bowel is normal in caliber. COLON: The colon is unremarkable. APPENDIX: Normal. URINARY BLADDER/PELVIC ORGANS: The urinary bladder is collapsed, limiting evaluation. There are numerous calcified masses in the uterus measuring up to 7.1 cm in size, consistent with fibroids. BONES / SOFT TISSUES: No suspicious bony or soft tissue abnormalities. CT/CT abdomen pelvis wo IV con IMPRESSION: 1. Polycystic kidney disease. No definite evidence of nephrolithiasis or ureteral obstruction. 2. Fibroid uterus as described. Electronically signed by: Maciej Hassan MD 12/28/2024 02:03 PM EDT External Record Review External record reviewed: Inpatient record Prescription Management I considered prescription management with: Pain Medication and Antibiotic (Cefpodoxime) Chronic Conditions Patient?s care impacted by: Other (PCKD, uterine fibroids) Social Determinants Patient?s care significantly limited by Social Determinants of Health including: Other Social Determinant of Health Critical Care Time Critical Care Time Critical Care Time: No Discharge Plan Discharge Clinical Impression: Urinary tract infection Patient Disposition: Home, Self-Care Instructions: Urinary Tract Infection in Older Adults (ED) Additional Instructions: Your blood work today is reassuring. The CT scan of your abdomen shows numerous cysts on your kidneys consistent with polycystic kidney disease. It also shows numerous fibroids within your uterus. You are aware of both of these findings. Please follow up with your outpatient providers. Your CT scan is otherwise normal. You have a urinary tract infection. Often times, this infection can move up to your kidneys. I am sending an antibiotic (cefpodoxime) to your pharmacy. Take this twice daily for 10 days as prescribed. Take this antibiotic to completion. Do not skip any doses. Please follow up with your outpatient providers. Follow up with your primary care provider. Return with new or worsening symptoms. In the case of an emergency call 911. Prescriptions: New cefpodoxime 200 mg tablet 200 mg PO BID 10 Days Qty: 20 0RF Rx Instructions: must administer with a meal/food No Action phenazopyridine [Pyridium] 200 mg tablet 200 mg PO TID PRN (Reason: pain) Qty: 10 0RF cephalexin 500 mg capsule 500 mg PO BID Qty: 13 0RF Referrals: [facility] [place] [facility] [place]Provider Group] [facility] [place] [facility] [Provider Group] [facility] [place] [facility] [Provider Group] Stand Alone Forms: Work/School Release Interventions: ED Discharge Assessment Last Done: 12/28/24 16:44 Discharge Date/Time: 12/28/24 16:44 Print Language: Uzbek
[2024-12-28 11:35] LABS: MANUAL DIFF FLAG NO
[2024-12-28 11:37] LABS: Appearance Urine Turbid; Color Urine Orange; Glucose Urine UA Negative (Negative); Leukocyte Esterase Urine Large (3+) (Negative); Nitrite Urine Positive (Negative); UMIC TRIGGER UACC YES; Urine Blood Moderate (2+) (Negative); Urine Ketones Negative (Negative); Urine Protein 300 (3+) mg/dL (Neg-Trace)
[2024-12-28 11:41] LABS: Bacteria Urine 4+ (None Seen); Hyaline Casts Urine 0-2 /LPF (0-2); RBC Urine >20 /HPF (0-2); Squamous Epithelial Cell Urine 0-2 /HPF (0-2); UACC Culture Trigger YES; WBC Urine >50 /HPF (0-5)
[2024-12-28 11:55] LABS: Basophils Absolute Auto 0.1 X10*3/uL (0.0-0.2); Basophils Percent Auto 0.5 % (0-2); Eosinophils Absolute Auto 0.2 X10*3/uL (0.0-0.4); Eosinophils Percent Auto 1.3 % (0-4); Hematocrit 40.1 % (37.0-47.0); Hemoglobin 13.6 g/dl (12.0-16.0); Imm Gran Abs Auto 0.05 X10*3/uL (0.00-0.03); Imm Gran Pct Auto 0.4 % (0.0-0.4); Lymphocytes Absolute Auto 0.9 X10*3/uL (1.2-4.9); Lymphocytes Percent Auto 7.8 % (20-40); Mean Corpuscular HGB Conc 33.9 g/dl (31.0-35.0); Mean Corpuscular Hemoglobin 30.2 pg (27.0-33.0); Mean Corpuscular Volume 88.9 fL (80.0-98.0); Mean Platelet Volume 9.7 fL (9.4-12.3); Monocytes Absolute Auto 1.1 X10*3/uL (0.1-1.2); Monocytes Percent Auto 9.3 % (2-11); Neutrophils Absolute Auto 9.1 x10*3/uL (2.0-8.3); Neutrophils Percent Auto 80.7 % (45-73); Platelet Count 305 X10*3/uL (160-400); Red Blood Count 4.51 X10*6/uL (4.20-5.50); Red Cell Distribution Width 13.9 % (11.0-16.0); White Blood Count 11.3 X10*3/uL (4.8-10.8)
[2024-12-28 11:59] LABS: Alanine Aminotransferase 14 U/L (0-31); Albumin Level 4.5 g/dL (3.5-5.0); Alkaline Phosphatase 79 U/L (39-117); Anion Gap 16 (12-20); Aspartate Amino Transferase 17 U/L (5-31); Bilirubin Total 0.6 mg/dL (0.0-1.0); Blood Urea Nitrogen 30 mg/dL (9-16); Carbon Dioxide 28 mmol/L (22-29); Chloride 103 mmol/L (96-108); Creatinine Clr Calc Pharmacy 36.9; Estimated Glomerular Filt Rate 36; Glucose Random 109 mg/dL (60-115); Potassium 3.4 mmol/L (3.3-5.1); Sodium 144 mmol/L (135-145); Total Protein 7.8 g/dL (6.5-8.0)
[2024-12-28 12:02] LABS: Lactic Acid 1.4 mmol/L (0.5-2.0)
[2024-12-28] MEDS: Acetaminophen 325 MG TABLET 975 MG PO (12:18)
[2024-12-28] MEDS: amLODIPine Besylate 2.5 MG TABLET PO (13:57)
[2024-12-28] MEDS: ondansetron HCL 4 MG/2 ML VIAL IVPUSH (14:26)
[2024-12-28] MEDS: Lidocaine 4 % Patch ADH..PATCH 1 PATCH TRANSDERMA (14:40)
[2024-12-28] MEDS: Cyclobenzaprine HCl 10 MG TABLET PO (14:40)
[2024-12-28] MEDS: HYDROmorphone HCl 0.5 MG/0.5 ML SYRINGE IVPUSH (15:06)
[2024-12-28] MEDS: 0.9 % Sodium Chloride 1,000 ML 999 ML IV (15:06)
[2024-12-28] MEDS: cefTRIAXone sodium 1 GM VIAL IVPUSH (15:06)
--- OUTSIDE RECORDS SUMMARY | 2024-12-28 16:01 | XMS_ITS | Clinical Summary ---
Author Organization [address] Building Address [address] [place] [address] Phone Care Team Providers Care Adjuster Arbitrator Name Role Phone Nishant Dowd MD Primary Care Provider [phone] Allergies Active Allergy Reactions Criticality Noted Date Comments Aspirin Numbness,Swelling High 07/05/2017 Iodinated Contrast Media Anaphylaxis High 09/30/2017 Penicillins Numbness,Rash Medium 07/05/2017 Sulfa (Sulfonamide Antibiotics) Numbness,Rash High 1 Tetracyclines Swelling Low 04/08/2023 Medications fluticasone propionate (FLONASE) 50 mcg/actuation nasal spray Administer 2 sprays into each nostril 1 (one) time each day. SHAKE WELL 4 Active fluticasone propion-salmeter oL (ADVAIR DISKUS) 100-50 mcg/dose diskus inhaler Inhale 1 puff by mouth every 12 (twelve) hours. 4 Active loratadine (CLARITIN) 10 mg tabletIndication s:Acute pansinusitis, unspecified Take 1 tablet (10 mg total) by mouth 1 (one) time each day. 90 each 1 5 05/06/20 25 Active montelukast (SINGULAIR) 10 mg tablet Take 1 tablet (10 mg total) by mouth at bedtime. 90 each 1 5 05/06/20 25 Active losartan-hydroCH LOROthiazide (HYZAAR) 100-12.5 mg per tablet Take 1 tablet by mouth 1 (one) time each day. 90 each 1 5 05/06/20 25 Active amLODIPine (NORVASC) 2.5 mg tablet Take 1 tablet (2.5 mg total) by mouth 1 (one) time each day. 90 each 1 5 05/06/20 25 Active gabapentin (NEURONTIN) 100 mg capsule Take 1 capsule (100 mg total) by mouth at bedtime. 30 each 1 5 05/06/20 25 Active SUMAtriptan (IMITREX) 50 mg tablet Take 1 tablet (50 mg total) by mouth 1 (one) time if needed for migraine. MAY REPEAT DOSE ONCE AFTER 2 HOURS IF NEEDED 9 tablet 1 5 05/06/20 25 Active albuterol HFA (PROAIR HFA ; PROVENTIL HFA ; VENTOLIN HFA) 90 mcg/actuation inhaler Inhale 2 puffs by mouth every 4 (four) hours if needed for wheezing. Cough 18 g 1 5 Active Active Problems Problem Noted Date Diagnosed Date Asthma 10/05/2024 Hiatal hernia 10/05/2024 Hypoglycemia 10/05/2024 Overview (10/05/2024): 16 yo Migraine 10/05/2024 Chest pain 05/20/2023 Overview (10/05/2024): Last Assessment & Plan: The patient came for evaluation due to episodes of chest pain. The description of the symptoms is consistent with atypical chest pain. The description of her symptoms do suggest a musculoskeletal chest discomfort. However, the patient has also been noticing symptoms of exertional dyspnea. Given her exertional dyspnea, we must consider the possibility of underlying cardiac disease. The patient has the following risk factors for coronary artery disease: Acute hypertension. As such, will order a stress echocardiogram to rule out any cardiac ischemia that may be causing her symptoms. We will also order a transthoracic echocardiogram to rule out any underlying structural heart disease. We will also order a lipid panel to rule out the presence of hyperlipidemia. Palpitations 05/20/2023 Overview (10/05/2024): Last Assessment & Plan: The patient has been experiencing episodes of palpitations. We will order a Holter monitor to evaluate for any underlying arrhythmias as a cause of her symptoms. We will also order an echocardiogram to rule out any significant structural heart disease. We will also order a TSH level to rule out hyperthyroidism as well as a chemistry panel to rule out any other electrolyte abnormalities. QT prolongation 12/01/2022 Overview (10/05/2024): Borderline QT prolongation on ECG 12/01/2022 CKD (chronic kidney disease) stage 3, GFR 30-59 ml/min 03/14/2021 Nephrolithiasis 09/11/2019 Essential hypertension 11/14/2018 Overview (10/05/2024): Last Assessment & Plan: The patient has a history of arterial hypertension. The patient's blood pressure today was noted to be well controlled. We'll continue the current antihypertensive medication regimen. ADPKD (autosomal dominant polycystic kidney dise ase) 01/11/2018 Encounters Date Type Department Care Team Description 11/20/2024 8:35 AM EST - 11/20/2024 11:59 PM [facility] Hospital [facility] at [address] [id number] Encounter for screening mammogram for malignant neoplasm of breast Discharge Disposition: Home or Self Care 11/07/2024 8:00 AM EST Office Visit [facility] [address] [place] [address] Joe Yarbrough PA Health maintenance examination (Primary Dx); Acute pansinusitis, unspecified; Encounter for screening mammogram for malignant neoplasm of breast; Essential hypertension; Asthma, unspecified asthma severity, unspecified whether complicated, unspecified whether persistent; Intractable chronic migraine without aura and without status migrainosus from Last 3 Months Immunizations Name Administration Dates Next Due Influenza, Unspecified 07/08/2023 [employer]/Giving Assistant SARS-CoV-2 COVID -19, vector-nr, [id number], preservative free 04/23/2021 Qbix SARS-CoV-2 COVID-19, mRNA, LNP-S, preservative free 06/21/2023,11/07/2021 Surgical History Surgery Date Site/Laterality Comments CHOLECYSTECTOMY 1995 PROCEDURE: AR CHOLECYSTECTOMY OTHER SURGICAL HISTORY 07/01/2018 PROCEDURE: ---- OTHER ----; COMMENT: epidermal cyst removal OTHER SURGICAL HISTORY 10/20/2019 PROCEDURE: ---- OTHER ----; COMMENT: ureteral stone removal Medical History Medical History Date Comments Asthma DX:Asthma Hypoglycemia DX:Hypoglycemia; COMMENT: 16 yo Hypertension DX:Hypertension Polycystic kidney DX:Polycystic kidney Migraine DX:Migraine Hiatal hernia DX:Hiatal hernia PFO (patent foramen ovale) DX:PF O (patent foramen ovale) Family History Medical History Relation Name Comments Hypertension Brother Other: esoph cancer Father at 52 Diabetes Maternal Grandfather Diabetes Maternal Grandmother emphyse ma Other: heart problems Mother Other: kidney failure, diabetes Mother at 76 yo Other: mva Sister 32 yo Other: tongue cancer Uncle materna l; was a smoker Relation Name Status Comments Brother Alive Father Maternal Grandfather Maternal Grandmother Mother Sister Uncle Social History Tobacco Use Types Packs/Day Years Used Date Smoking Tobacco: Never Smokeless Tobacco: Never Tobacco Cessation:Counseling Given: Not Answered Alcohol Use Standard Drinks/Week Comments Not Currently 0 (1 standard drink = 0.6 oz pur e alcohol) Comments No Sex and Gender Information Value Date Recorded Sex Assigned at Female 11/14/2024 3:45 PM EST Legal Sex Female 12:18 AM EST Gender Identity Female 11/14/2024 3:45 PM EST Sexual Orientation Not on file Obstetrics History Last Filed Vital Signs Vital Sign Reading Time Taken Comments Blood Pressure 122/84 11/07/2024 8:32 AM EST Pulse 86 11/07/2024 8:14 AM EST Temperature - - Respiratory Rate - - Oxygen Saturation - - Inhaled Oxygen Concentration - - Weight 69.4 kg (153 lb) 11/20/2024 8:53 AM EST Height 167.6 cm (5' 6 ) 11/20/2024 8:53 AM EST Body Mass Index 24.69 11/20/2024 8:53 AM EST Plan of Treatment Health Maintenance Due Date Last Done Comments Pneumococcal Vaccine: 50+ Years (1 of 2 - PCV) 1980 Pneumococcal Vaccine: Pediatrics (0 to 5 Years) and At-Risk Patients (6 to 64 Years) (1 of 2 - PCV) 1980 Zoster Vaccines (1 of 2) 2011 Cervical Cancer Screening: Pap Smear 07/08/2020 07/08/2017, 07/08/2017 RSV Immunization Adult Patients (1 - Risk 60-74 years 1-dose series) 2021 HIV Screening 09/05/2022 Social Influencers of Health Screening 09/05/2022 COVID-19 Vaccine ( - season) 2024 06/21/2023, 11/07/2021, 04/23/2021 Influenza Vaccine (#1) 2024 , 08/05/2021, 07/17/2020, Additional history exists Depression Screening 02/17/2025 02/18/2024 Colorectal Cancer Screening: Colonoscopy 06/12/2025 06/12/2020 Hypertension/CHF/CAD Annual BMP Blood Test 11/17/2025 11/17/2024, 04/27/2024, 04/27/2024, Additional history exists Breast Cancer Screening 11/20/2026 11/20/2024 DTaP,Tdap,and Td Vaccines (2 - Td or Tdap) 06/10/2028 06/10/2018 Cholesterol Screening (Lipid Panel) 11/17/2029 11/17/2024, 10/01/2023 Hepatitis C Screening Completed 12/16/2017 HIB Vaccines Aged Out No longer eligi ble based on patient's age to complete this topic HPV Vaccines Aged Out No longer eligi ble based on patient's age to complete this topic Hepatitis A Vaccines Aged Out No long er eligible based on patient's age to complete this topic Hepatitis B Vaccines Aged Out No long er eligible based on patient's age to complete this topic IPV Vaccines Aged Out No longer eligi ble based on patient's age to complete this topic MMR Vaccines Aged Out No longer eligi ble based on patient's age to complete this topic Meningococcal ACWY Vaccine Aged Out N o longer eligible based on patient's age to complete this topic Meningococcal B Vacine Aged Out No lo nger eligible based on patient's age to complete this topic RSV Immunization Patients Under 20 months Aged Out No longer eligible based on patient's age to complete this topic Varicella Vaccines Aged Out No longer eligible based on patient's age to complete this topic Procedures Procedure Name Priority Date/Time Associated Diagnosis Comments MG MAMMO DIGITAL SCREENING BILAT Routine 11/20/2024 9:25 AM EST Encounter for screening mammogram for malignant neoplasm of breast CBC WITH AUTO DIFFERENTIAL Routine 11/17/2024 9:57 AM EST Health maintenance examination LIPID PANEL WITH REFLEX TO DIRECT LDL Routine 11/17/2024 9:57 AM EST Health maintenance examination COMPREHENSIVE METABOLIC PANEL Routine 11/17/2024 9:57 AM EST Health maintenance examination CBC AND DIFFERENTIAL Routine 11/17/2024 9:57 AM EST Health maintenance examination THYROID STIMULATING HORMONE WITH REFLEX TO FREE T4 AND FREE T3 Routine 11/17/2024 9:57 AM EST Health maintenance examination HM DEPRESSION SCREENING Routine 02/18/2024 HM COLONOSCOPY Routine 06/12/2020 HM HEPATITIS C SCREENING Routine 12/16/2017 HM HPV Routine 07/08/2017 from Last 3 Months or Most Recently Relevant to Health Maintenance Results * MG Mammo Digital Screening bilat (11/20/2024 9:25 AM EST) Anatomical Region Laterality Modality Breast Bilateral Mammography 11/22/2024 10:2 3 AM EST Impressions 11/22/2024 10:32 AM EST No mammographic evidence of malignancy. ?? Unable to locate prior's. A negative mammogram in the presence of a clinically suspicious palpable abnormality does not preclude the possibility of malignancy or alter the indications for biopsy. ASSESSMENT: ?? BI-RADS 2: BENIGN RECOMMENDATION(S): 1: Routine screening mammogram BILATERAL in 1 year. -------- FINAL REPORT -------- Dictated By: Que Parker Dictated Date: 11/22/2024 10:23 ET Assigned Physician: Que Parker Reviewed and Electronically Signed By: Que Parker Signed Date: 11/22/2024 10:32 ET Workstation ID: [id number] Transcribed By: Self Edit Transcribed Date: 11/22/2024 10:23 ET Narrative 11/22/2024 10:32 AM EST EXAM: ??SCREENING MAMMOGRAPHY, BILATERAL HISTORY: ??SCREENING. ??No additional history. COMPARISON: ??None available TECHNIQUE: Synthesized CC and MLO projections of each breast. ??Tomosynthesis of each breast in the CC and MLO projections. ADDITIONAL IMAGING: None Computer-aided detection was employed with the iCAD ??profound AI 3-D. TISSUE DENSITY: The breasts are heterogeneously dense, which may obscure small masses. (BI-RADS category C) FINDINGS: RIGHT BREAST: No suspicious mass. No suspicious calcification. No distortion. ?? Circumscribed equal density 0.7 cm oval mass superficial inferior right breast 5 cm from the nipple with typically benign features. LEFT BREAST: No suspicious mass. No suspicious calcification. No distortion. ?? No additional suspicious left breast findings Procedure Note Que Parker MD - 11/22/2024 EXAM: SCREENING MAMMOGRAPHY, BILATERAL HISTORY: SCREENING. No additional history. COMPARISON: None available TECHNIQUE: Synthesized CC and MLO projections of each breast.Tomosynthesis of each breast in the CC and MLO projections. ADDITIONAL IMAGING: None Computer-aided detection was employed with the iCAD profound AI 3-D. TISSUE DENSITY: The breasts are heterogeneously dense, which may obscuresmall masses. (BI-RADS category C) FINDINGS: RIGHT BREAST: No suspicious mass. No suspicious calcification. No distortion.Circumscribed equal density 0.7 cm oval mass superficial inferior rightbreast 5 cm from the nipple with typically benign features. LEFT BREAST: No suspicious mass. No suspicious calcification. No distortion. Noadditional suspicious left breast findings IMPRESSION: No mammographic evidence of malignancy. Unable to locate prior's. A negative mammogram in the presence of a clinically suspicious palpableabnormality does not preclude the possibility of malignancy or alter theindications for biopsy. ASSESSMENT: BI-RADS 2: BENIGN RECOMMENDATION(S): 1: Routine screening mammogram BILATERAL in 1 year. -------- FINAL REPORT -------- Dictated By: Que Parker Dictated Date: 11/22/2024 10:23 ET Assigned Physician: Que Parker Reviewed and Electronically Signed By: Que Parker Signed Date: 11/22/2024 10:32 ET Workstation ID: [id number] Transcribed By: Self Edit Transcribed Date: 11/22/2024 10:23 ET Joe ESPINAL IMG BI PROCEDURES Final Result * Thyroid stimulating hormone with reflex to free t4 and free t3 (11/17/2024 9:57 AM EST) [facility] TSH 1.39 0.40 - 4.00 mcIU/mL LAB CHEMISTRY METHOD 11/17/2024 5:02 PM [facility] Blood Venous blood specimen / Unknown Venipuncture / Unknown 11/17/2024 9:57 AM EST 11/17/2024 9:57 AM EST Joe ESPINAL LAB BLOOD ORDERABLES Fi nal Result [facility] [address] [place] [address], [place] [phone] * (ABNORMAL) Lipid panel with reflex to direct LDL (11/17/2024 9:57 AM EST) Cholesterol 215(H) 0 - 200 mg/dL LAB CHEMISTRY METHOD 11/17/2024 4:55 PM [facility] Triglycerides 294(H) 0 - 150 mg/dL LAB CHEMISTRY METHOD 11/17/2024 4:55 PM EST [facility] HDL 55 >=40 mg/dL LAB CHEMISTRY METHOD 11/17/2024 4:55 PM [facility] LDL Calculated 101(H) 0 - 100 mg/dL LAB CHEMISTRY METHOD 11/17/2024 4:55 PM [facility] VLDL Cholesterol Gustavo 58.8 mg/dL LAB CHEMISTRY METHOD 11/17/2024 4:55 PM [facility] Non HDL Chol. (LDL+VLDL) 160(H) <145 mg/dL LAB CHEMISTRY METHOD 11/17/2024 4:55 PM [facility] Chol/HDL Ratio 3.9 0.0 - 4.4 LAB CHEMISTRY METHOD 11/17/2024 4:55 PM [facility] Blood Venous blood specimen / Unknown Venipuncture / Unknown 11/17/2024 9:57 AM EST 11/17/2024 9:57 AM EST Joe ESPINAL LAB BLOOD ORDERABLES Fi nal Result [facility] [address] [place] [address], * (ABNORMAL) CBC auto differential (11/17/2024 9:57 AM EST) WBC 5.5 4.8 - 10.8 K/mcL LAB HEMETOLOGY METHOD 11/17/2024 12:33 PM [facility] RBC 4.40 3.80 - 4.80 M/mcL LAB HEMETOLOGY METHOD 11/17/2024 12:33 PM [facility] Hemoglobin 13.1 11.5 - 16.0 g/dL LAB HEMETOLOGY METHOD 11/17/2024 12:33 PM [facility] Hematocrit 39.8 35.0 - 47.0 % LAB HEMETOLOGY METHOD 11/17/2024 12:33 PM [facility] MCV 90.9 79.0 - 98.0 FL LAB HEMETOLOGY METHOD 11/17/2024 12:33 PM [facility] MCH 29.9 27.0 - 32.0 pcg LAB HEMETOLOGY METHOD 11/17/2024 12:33 PM [facility] MCHC 32.9 32.0 - 37.0 g/dL LAB HEMETOLOGY METHOD 11/17/2024 12:33 PM [facility] RDW 13.6 11.0 - 15.0 % LAB HEMETOLOGY METHOD 11/17/2024 12:33 PM [facility] Platelets 298 130 - 400 K/mcL LAB HEMETOLOGY METHOD 11/17/2024 12:33 PM [facility] MPV 9.9 7.0 - 11.0 FL LAB HEMETOLOGY METHOD 11/17/2024 12:33 PM [facility] NRBC 0.0 <1.0 % LAB HEMETOLOGY METHOD 11/17/2024 12:33 PM [facility] NRBC Absolute 0.00 <0.10 K/mcL LAB HEMETOLOGY METHOD 11/17/2024 12:33 PM [facility] Neutrophils Relative 63.1 % LAB HEMETOLOGY METHOD 11/17/2024 12:33 PM [facility] Lymphocytes Relative 19.3 % LAB HEMETOLOGY METHOD 11/17/2024 12:33 PM [facility] Monocytes Relative 11.1 % LAB HEMETOLOGY METHOD 11/17/2024 12:33 PM [facility] Eosinophils Relative 4.2 % LAB HEMETOLOGY METHOD 11/17/2024 12:33 PM [facility] Basophils Relative 1.6 % LAB HEMETOLOGY METHOD 11/17/2024 12:33 PM [facility] Immature Granulocytes Relative 0.7 % LAB HEMETOLOGY METHOD 11/17/2024 12:33 PM [facility] Neutrophils Absolute 3.47 1.50 - 7.00 K/mcL LAB HEMETOLOGY METHOD 11/17/2024 12:33 PM [facility] Lymphocytes Absolute 1.06 1.00 - 5.00 K/mcL LAB HEMETOLOGY METHOD 11/17/2024 12:33 PM EST [facility] Monocytes Absolute 0.61 0.20 - 1.00 K/[facility] LAB HEMETOLOGY METHOD 11/17/2024 12:33 PM EST [facility] Eosinophils Absolute 0.23 0.00 - 0.50 K/[facility] LAB HEMETOLOGY METHOD 11/17/2024 12:33 PM EST [facility] Basophils Absolute 0.09 0.00 - 0.20 K/[facility] HEMETOLOGY METHOD 11/17/2024 12:33 PM [facility] Immature Granulocytes Absolute 0.04(H) 0.00 - 0.03 K/[facility] HEMETOLOGY METHOD 11/17/2024 12:33 PM [facility] Blood Venous blood specimen / Unknown Venipuncture / Unknown 11/17/2024 9:57 AM EST 11/17/2024 9:57 AM EST Joe ESPINAL LAB BLOOD ORDERABLES Fi nal Result [facility] [address] [place] [address], * (ABNORMAL) Comprehensive metabolic panel (11/17/2024 9:57 AM EST) Sodium 142 133 - 145 mmol/L LAB CHEMISTRY METHOD 11/17/2024 4:55 PM [facility] Potassium 4.0 3.5 - 5.5 mmol/L LAB CHEMISTRY METHOD 11/17/2024 4:55 PM [facility] Chloride 105 96 - 110 mmol/L LAB CHEMISTRY METHOD 11/17/2024 4:55 PM [facility] CO2 29 21 - 32 mmol/L LAB CHEMISTRY METHOD 11/17/2024 4:55 PM EST [facility] Anion Gap 8 3 - 11 LAB CHEMISTRY METHOD 11/17/2024 4:55 PM [facility] Glucose 96 70 - 100 mg/dL LAB CHEMISTRY METHOD 11/17/2024 4:55 PM [facility] BUN 29(H) 5 - 25 mg/dL LAB CHEMISTRY METHOD 11/17/2024 4:55 PM [facility] Creatinine 1.56(H) 0.50 - 1.10 mg/dL LAB CHEMISTRY METHOD 11/17/2024 4:55 PM [facility] eGFR 37(L) >=60 mL/min/1. 73m2 LAB CHEMISTRY METHOD 11/17/2024 4:55 PM [facility] Comment:Calculation based on the??Chronic Kidney Disease Epidemiology Collaboration (CKD-EPI) equation refit??without adjustment for race. BUN/Creatinine Ratio 18.6 LAB CHEMISTRY METHOD 11/17/2024 4:55 PM [facility] Calcium 10.1 8.5 - 10.5 mg/dL LAB CHEMISTRY METHOD 11/17/2024 4:55 PM [facility] AST (SGOT) 17 10 - 42 unit/L LAB CHEMISTRY METHOD 11/17/2024 4:55 PM [facility] ALT (SGPT) 24 10 - 60 unit/L LAB CHEMISTRY METHOD 11/17/2024 4:55 PM [facility] Alkaline Phosphatase 85 42 - 121 unit/L LAB CHEMISTRY METHOD 11/17/2024 4:55 PM [facility] Total Protein 7.5 6.0 - 8.0 g/dL LAB CHEMISTRY METHOD 11/17/2024 4:55 PM [facility] Albumin 4.1 3.2 - 5.0 g/dL LAB CHEMISTRY METHOD 11/17/2024 4:55 PM [facility] Total Bilirubin 0.3 0.0 - 1.4 mg/dL LAB CHEMISTRY METHOD 11/17/2024 4:55 PM EST [facility] Blood Venous blood specimen / Unknown Venipuncture / Unknown 11/17/2024 9:57 AM EST 11/17/2024 9:57 AM EST Joe ESPINAL LAB BLOOD ORDERABLES Fi nal Result [facility] [address] [place] [address], [place] [phone] * Depression Screening (02/18/2024) [facility] Depression Screening abstracted Historical Provider HEALTH MAINTENANCE Final Result * Colonoscopy (06/12/2020) [facility] Colonoscopy no interpretation , abstracted Anatomical Region Laterality Modality Other [facility] Provider HEALTH MAINTENANCE Final Result * Hepatitis C Screening (12/16/2017) [facility] Hepatitis C Screening abstracted Historical Provider HEALTH MAINTENANCE Final Result * Cervical Cancer Screening: HPV (07/08/2017) [facility] Cervical Cancer Screening: HPV negative, abstracted Historical Provider HEALTH MAINTENANCE Final Result from Last 3 Months or Most Recently Relevant to Health Maintenance Insurance MEDICAID - [place] Care Teams Adjuster Arbitrator Relationship Specialty Start Date End Date Nishant Dowd MD [address] [place] [address] [place] [id number] PCP - General Internal Medicine 02/04/22
--- OUTSIDE RECORDS SUMMARY | 2024-12-28 16:01 | XMS_ITS | Clinical Summary ---
Author Organization [facility] Address [address] [phone] Phone Care Team Providers Care Pharmacognosy Teacher Name Role Phone Nishant Dowd Primary Care Provider [phone] Allergies Active Allergy Reactions Criticality Noted Date Comments Aspirin 03/18/2023 Iodinated Contrast Media 01/16/2022 Penicillin G 03/18/2023 Sulfa Antibiotics 03/18/2023 Tetracycline 03/18/2023 Medications losartan-hydroC HLOROthiazide (HYZAAR) 100-12.5 MG per tablet Take 1 tablet by mouth 1 (one) time each day 8 Active loratadine (CLARITIN) 10 MG tablet Take 1 tablet by mouth 1 (one) time each day 2 Active SUMAtriptan (IMITREX) 50 MG tablet Take 50 mg by mouth if needed 3 Active amLODIPine (NORVASC) 2.5 MG tablet Take 2.5 mg by mouth 1 (one) time each day Active Blood Pressure Monitoring (Blood Pressure Digital Add-on) kit 1 Units 1 (one) time each day Ckd, pkd and uncontrolled htn - needs upper arm digital home bp monitor 1 kit 4 Active albuterol HFA (PROVENTIL HFA;VENTOLIN HFA) 108 (90 Base) MCG/ACT inhaler Inhale 2 puffs if needed 5 Active fluticasone (FLONASE) 50 MCG/ACT nasal spray Administer 2 sprays into each nostril if needed 4 Active gabapentin (NEURONTIN) 100 MG capsule Take 100 mg by mouth every night 5 05/06/20 Active montelukast (SINGULAIR) 10 MG tablet Take 1 tablet by mouth every night 5 05/06/20 25 Active Active Problems Problem Noted Date Diagnosed Date Patent foramen ovale 10/27/2023 Stage 3a chronic kidney disease 03/21/2023 Polycystic kidney, not otherwise specified 03/21 Hypertension 03/21/2023 Prolonged QT interval 12/01/2022 Overview (10/27/2023): Borderline QT prolongation on ECG 12/01/2022 Nephrolithiasis 09/11/2019 Encounters Date Type Department Care Team Description 11/29/2024 9:00 AM EST [facility] Visit [facility] [address] [phone] Kali Higginbotham MD Stage 3a chronic kidney disease (HCC) (Primary Dx); Polycystic kidney, not otherwise specified; Nephrolithiasis; Hypertension 11/27/2024 Orders Only [facility] [address] [phone] Kali Higginbotham MD Stage 3a chronic kidney disease (HCC); Polycystic kidney, not otherwise specified; Nephrolithiasis; Hypertension from Last 3 Months Social History Tobacco Use Types Packs/Day Years Used Date Smoking Tobacco: Never Assessed Comments Unknown Sex and Gender Information Value Date Recorded Sex Assigned at Not on file Legal Sex Female 8:21 AM EDT Gender Identity Not on file Sexual Orientation Not on file Last Filed Vital Signs Vital Sign Reading Time Taken Comments Blood Pressure 116/80 11/29/2024 9:07 AM EST Pulse 82 11/29/2024 9:07 AM EST Temperature - - Respiratory Rate - - Oxygen Saturation 98% 11/29/2024 9:07 AM EST Inhaled Oxygen Concentration - - Weight 66.7 kg (147 lb) 11/29/2024 9:07 AM EST Height 167.6 cm (5' 6 ) 11/29/2024 9:07 AM EST Body Mass Index 23.73 11/29/2024 9:07 AM EST Plan of Treatment Upcoming Encounters Date Type Department Care Team (Late st Contact Info) Description 05/31/2025 10:00 AM EDT Office Visit [facility] [address] [phone] Kali Higginbotham MD [address] [phone] Health Maintenance Due Date Last Done Comments Breast Cancer Screening 1961 Pneumococcal Vaccine: Pediat rics (0 to 5 Years) and At-Risk Patients (6 to 64 Years) (1 of 2 - PCV) 1967 Colorectal Cancer Screening: Annual FOBT 2010 Colorectal Cancer Screening: Colonoscopy 2010 Colorectal Cancer Screening: Sigmoidoscopy 2010 Influenza Vaccine (Season Ended) 2025 07/08/20 23 Hepatitis B Vaccine Aged Out No longe r eligible based on patient's age to complete this topic [place] Care Teams Pharmacognosy Teacher Relationship Specialty Start Date End Date Nishant Dowd [address] [facility] [place] [address] PCP - General 03/22/23
== END 2024-12-28 16:44 | disposition home or self-care (01) ==
PROVIDERS: Registered Nurse Emergency; Emergency Provider Emergency Medicine; PCP Psychiatry & Neurology Behavioral Neurology & Neuropsychiatry
DX: N39.0 Urinary tract infection, site not specified (principal); R10.9 Unspecified abdominal pain
CPT/HCPCS: 36415; 74176; 80053; 81001; 83605; 85025; 87040; 87086; 87088; 87186; 93005; 96374; 96375; 99284; 99285; J0696; J1171; J2405

== ENCOUNTER → 2024-12-28 13:21 | Outpatient (BNV) | payer MEDICAID, SELFPAY | PROVIDERS: Emergency Provider Emergency Medicine; PCP Psychiatry & Neurology Behavioral Neurology & Neuropsychiatry; Visit Provider Radiology Diagnostic Radiology | DX: Q61.2 Polycystic kidney, adult type (principal) | CPT/HCPCS: 74176 ==

== ENCOUNTER → 2024-12-28 14:22 | Outpatient (BNV) | payer MEDICAID, SELFPAY | PROVIDERS: Emergency Provider Emergency Medicine; PCP Psychiatry & Neurology Behavioral Neurology & Neuropsychiatry; Visit Provider Internal Medicine | DX: R00.0 Tachycardia, unspecified (principal) | CPT/HCPCS: 93010 ==

== ENCOUNTER 2025-02-20 12:16 | Emergency (ER) | payer MEDICAID, SELFPAY ==
--- NOTE | ~2025-02-20 | XR_ITS ---
EXAMINATION: XR ANKLE 3 OR MORE VIEWS LEFT, XR FOOT 3 OR MORE VIEWS LEFT HISTORY: L ankle inj COMPARISON: There are no prior studies available for comparison. FINDINGS: Six views of the left foot and ankle are submitted. Osseous mineralization is normal. There is no fracture or dislocation. There is mild degenerative change of the talonavicular joint. There is soft tissue swelling over the 5th MTP joint. XR/XR foot LT min 3V IMPRESSION: Soft tissue swelling over the 5th MTP joint. No evidence of fracture of the left foot or ankle. Electronically signed by: Maciej Hassan MD 02/20/2025 01:09 PM EDT
--- NOTE | ~2025-02-20 | US_ITS ---
EXAMINATION: US TRIPLEX LOWER EXTREMITY, BILATERAL CLINICAL INFORMATION: Edema, lower extremities. COMPARISON: None available. TECHNIQUE: Color-flow triplex imaging with spectral analysis and compression Doppler were performed on the bilateral lower extremities. FINDINGS: Respiratory variation, normal compression and augmented flow are present throughout the interrogated common femoral vein, superficial femoral vein, profunda femoral vein, popliteal vein and midcalf peroneal and posterior tibial venous segments . There is no Lee's cyst. US/US venous duplex LE BI IMPRESSION: No acute deep venous thrombosis interrogated veins, bilateral lower extremities. Negative for DVT. Electronically signed by: Truong Kim MD 02/20/2025 02:06 PM EDT
--- NOTE | ~2025-02-20 | XR_ITS ---
EXAMINATION: XR ANKLE 3 OR MORE VIEWS LEFT, XR FOOT 3 OR MORE VIEWS LEFT HISTORY: L ankle inj COMPARISON: There are no prior studies available for comparison. FINDINGS: Six views of the left foot and ankle are submitted. Osseous mineralization is normal. There is no fracture or dislocation. There is mild degenerative change of the talonavicular joint. There is soft tissue swelling over the 5th MTP joint. XR/XR ankle LT min 3V IMPRESSION: Soft tissue swelling over the 5th MTP joint. No evidence of fracture of the left foot or ankle. Electronically signed by: Maciej Hassan MD 02/20/2025 01:09 PM EDT
[2025-02-20 12:42] VITALS: BP 141/79; PULSE 94; RESP 18; TEMP 36.4; O2SAT 99; BMI 24.5
--- NOTE | 2025-02-20 12:43 | ED_ITS ---
HPI - Extremity Injury (Lower) General Chief Complaint: Extremity Injury, Lower Stated Complaint: L ankle fracture Time Seen by Provider: 02/20/25 14:53 History of Present Illness ED Provider: Tito Cortez MD HPI Narrative: This is a 64-year-old female who presents for leg pain in the left side. She says about a week ago she fell and struck the left calf region also had pain at the ankle bilateral malleolar region swelling and ecchymosis worsened and lower down to the ankle in the concerned her she came to urgent care 1st where she shows me radiology reading showing questionable lucency at the navicular and soft tissue swelling. She has been able to bear weight she works at [employer] she is on her feet quite often she has been taking Tylenol Related Data Previous Rx's ?Medication ?Instructions ?Recorded cephalexin 500 mg capsule 500 mg PO BID #13 caps 12/26/24 phenazopyridine 200 mg tablet 200 mg PO TID PRN pain #10 tabs 12/26/24 (Pyridium) cefpodoxime 200 mg tablet 200 mg PO BID 10 days #20 tabs 12/28/24 Allergies Allergy/AdvReac Type Severity Reaction Status Date / Time aspirin Allergy Anaphylaxis Verified 02/20/25 12:43 Iodinated Contrast Media Allergy Anaphylaxis Verified 02/20/25 12:43 [IV Contrast Dye] parsley Allergy Facial Verified 02/20/25 12:43 Swelling Penicillins [PCN] Allergy Unknown Verified 02/20/25 12:43 Sulfa (Sulfonamide Allergy Anaphylaxis Verified 02/20/25 12:43 Antibiotics) [facility] Social History Social History Unable to assess alcohol history related to: Unknown Advance Directives: No Advance Directives Information Provided: No Physical Exam Vital Signs: Vital Signs: Last Vital Signs Temp 97.5 F 02/20/25 12:42 Pulse 94 02/20/25 12:42 Resp 18 02/20/25 12:42 BP 141/79 H 02/20/25 12:42 Pulse Ox 99 02/20/25 12:42 O2 Del Method Room Air 02/20/25 12:42 BMI result Body Mass Index 24.5 Const: Other: EXAM: MSK: Mild bruising and tenderness of the left calf no overt swelling. Mild tenderness at the malleolar bilateral ecchymosis spreading medially. No significant foot bone tenderness or swelling well-perfused foot and digits good range of motion at the foot/ankle joint Vital signs: See flowsheet Course Course Course Narrative: This is a Rapid Medical Exam performed in triage by Caryl Jiang PA-C. Full HPI, ROS and PE to be performed by primary ED provider. 64 yo F presenting to the ED c/o left ankle pain/swelling s/p fall 17 days ago. sent to ED by today, admits had XRs at today, presented with disc. Also reports bilateral LE swelling today PE: In walking boot, ambulating with antalgic gait Plan: XR Medical Decision Making Medical Decision Making MDM Narrative: 64 female with questionable navicular lucency on outside hospital x-ray. This was not appreciated on repeat ankle and foot x-ray here by our radiology team. She does not have specific navicular region tenderness and she can bear weight. I put her in a boot I will have her follow up with Podiatry and/or Orthopedics weightbear as tolerated Tylenol. She may need CT as an outpatient versus MRI t his does not need to be done urgently Independent Interpretation I performed an independent interpretation of an: Plain X-Ray (Foot x-ray ankle x-ray reviewed by myself without fracture or dislocation) Discharge Plan Discharge Clinical Impression: Ankle sprain and strain, Contusion Instructions: Ankle Sprain (ED) Additional Instructions: DISCHARGE DIAGNOSES: Contusion of the leg with bruising. No fracture seen on ankle and foot x-ray HISTORY OF PRESENTATION: Fall 1 week ago with worsening bruising or EMERGENCY DEPARTMENT COURSE,TESTS, TREATMENTS: While in the ED today you had an x-ray of your foot and ankle with no fracture seen on our imaging by our radiologist DISCHARGE MEDICATIONS: ?[We have made no changes to your regular medication regimen] FOLLOW-UP: ?Call your primary or general physician soon as possible to discuss your symptoms, your ED visit and to discuss follow up plans Call our orthopedic service or have your PCP refer you to orthopedist or telegraph equipment maintainer INSTRUCTIONS ?& RETURN PRECAUTIONS: If any symptoms change first call your primary physician, if it is after-hours your primary doctors office should have a provider precision grinder external you can speak with. If the symptoms are severe or very concerning to you then call 911 or return to the ED. Tito Cortez MD Emergency Physician [facility] Prescriptions: No Action phenazopyridine [Pyridium] 200 mg tablet 200 mg PO TID PRN (Reason: pain) Qty: 10 0RF cephalexin 500 mg capsule 500 mg PO BID Qty: 13 0RF cefpodoxime 200 mg tablet 200 mg PO BID 10 Days Qty: 20 0RF Rx Instructions: must administer with a meal/food Referrals: [facility] [place] Orthopedic Surgeons [Provider Group] - 1 week Print Language: Lithuanian
--- OUTSIDE RECORDS SUMMARY | 2025-02-20 14:43 | XMS_ITS | Clinical Summary ---
Author Organization [facility] Address [address] [address] Phone Care Team Providers Care Cassandra Developer Name Role Phone Nishant Dowd Primary Care Provider [phone] Allergies Active Allergy Reactions Criticality Noted Date [...] Office Visit [facility] [address] [phone] Kali Higginbotham MD Stage 3a chronic kidney disease (HCC) (Primary Dx); Polycystic kidney, not otherwise specified; Nephrolithiasis; Hypertension 11/27/2024 Orders Only [facility] [address] [phone] Kali Higginbotham MD Stage 3a chronic kidney [...] Office Visit [facility] [address] [phone] Kali Higginbotham MD [address] [phone] Health Maintenance Due Date Last Done Comments Breast Cancer Screening 1961 Pneumococcal Vaccine: 50+ Ye ars (1 of 2 - PCV) 1980 Colorectal Cancer Screening: Annual FOBT 2010 Colorectal Cancer Screening: Colonoscopy 2010 Colorectal Cancer Screening: Sigmoidoscopy 2010 Influenza Vaccine (Season Ended) 2025 07/08/20 23 Hepatitis B Vaccine Aged Out No longe r eligible based on patient's age to complete this topic Insurance Medicaid [place] Medicaid [place] Care Teams Cassandra Developer Relationship Specialty Start Date End Date NoemíNishant [address] [place] [address] PCP - General 03/22/23
[2025-02-20 15:36] VITALS: BP 141/79; PULSE 94; RESP 18; TEMP 36.4; O2SAT 99
== END 2025-02-20 15:37 | disposition home or self-care (01) ==
PROVIDERS: Emergency Provider Emergency Medicine; PCP Internal Medicine
DX: S93.402A Sprain of unspecified ligament of left ankle, initial encounter (principal); S80.12XA Contusion of left lower leg, initial encounter; S80.11XA Contusion of right lower leg, initial encounter; R60.0 Localized edema; M79.672 Pain in left foot; X58.XXXA Exposure to other specified factors, initial encounter; Y93.9 Activity, unspecified; Y92.9 Unspecified place or not applicable; Y99.9 Unspecified external cause status
CPT/HCPCS: 73610; 73630; 93970; 99282; 99284

== ENCOUNTER → 2025-02-20 12:48 | Outpatient (BNV) | payer MEDICAID, SELFPAY | PROVIDERS: PCP Internal Medicine; Visit Provider Radiology Diagnostic Radiology | DX: R22.43 Localized swelling, mass and lump, lower limb, bilateral (principal); M70.872 Other soft tissue disorders related to use, overuse and pressure, left ankle and foot; M19.072 Primary osteoarthritis, left ankle and foot | CPT/HCPCS: 73610; 73630; 93970 ==

== ENCOUNTER 2025-02-26 09:04 | Outpatient (AMB) | payer OTHER, SELFPAY ==
--- NOTE | 2025-02-26 09:06 | MHC.OFFVIS ---
Vital Signs 02/26/25 09:22 Height 5 ft 5 in Weight 147 lb BMI 24.5 Intake Visit Reasons: ER F/U: Left ankle sprain/strain s/p fall Intake Note: Glo is a 64 year old female who presents today for a ED follow up for her left ankle fx, DOI 02/09/25. Patient states that she fell backwards and struck the left calf. She notices that her pain is located on the . Patient has been able to bear weight. She works at [employer] she is on her feet quite often. Patient has been taking Tylenol which is giving her mild relief. IMPRESSION (Ankle) : Soft tissue swelling over the 5th MTP joint. No evidence of fracture of the left foot or ankle. IMPRESSION (Foot) : Soft tissue swelling over the 5th MTP joint. No evidence of fracture of the left foot or ankle. Allergies aspirin Allergy (Verified 02/26/25 09:17) Anaphylaxis Iodinated Contrast Media [IV Contrast Dye] Allergy (Verified 02/26/25 09:17) Anaphylaxis parsley Allergy (Verified 02/26/25 09:17) Facial Swelling Penicillins [PCN] Allergy (Verified 02/26/25 09:17) Unknown Sulfa (Sulfonamide Antibiotics) Allergy (Verified 02/26/25 09:17) Anaphylaxis HPI HPI ER F/U: Left ankle sprain/strain s/p fall: Details: Ms. Jason Jones is a 64-year-old female who presents to the office today for evaluation of a left ankle sprain that she sustained on 02/09/2025. She states that she was in her kitchen and she fell backwards striking the left calf and injuring the left ankle. She was given a short walking boot and instructed to follow up with orthopedics outpatient for further evaluation and treatment. Of note, the patient does work at [employer] and is on her feet for most of the shift. She has been taking Tylenol giving her mild relief. 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 Tender to palpation but no surrounding erythema. No signs of infection. Left ankle: Ecchymosis located on the medial aspect of the ankle accompanied by tenderness to palpation. Patient is able to demonstrate dorsiflexion, plantar flexion, pronation and supination. Negative anterior drawer. Sensation intact. Pedal Pulse intact. Assessment & Plan Assessment & Plan (1) Left ankle sprain: Code(s): S93.402A - Sprain of unspecified ligament of left ankle, initial encounter Category: Medical (2) Hematoma and contusion: Code(s): T14.8XXA - Other injury of unspecified body region, initial encounter Category: Medical Plan Ms. Jason Jones is a 64-year-old female who presents to the office today for evaluation of a left ankle sprain that she sustained on 02/09/2025. She states that she was in her kitchen and she fell backwards striking the left calf and injuring the left ankle. She was given a short walking boot and instructed to follow up with orthopedics outpatient for further evaluation and treatment. Of note, the patient does work at [employer] and is on her feet for most of the shift. She has been taking Tylenol giving her mild relief. While the office today, the patient requests to return back to work but is not allowed to do so within the short walking boot. I provided her with a lace-up ankle brace off the shelf. She may return back to work full-time regular duty. She will use pain as her guide to return back to normal activities. If she experiences any increase in pain she will contact our office. We did discuss the role of physical therapy however the patient is having full range of motion. In regards to the hematoma in her calf I recommended heat and gentle motion. She will follow up PRN, sooner if needed. X-rays from 02/20/2025 are negative for any acute fracture of the left foot or ankle. Orders: Orders XR ankle LT min 3V Today M25.579 - Pain in unspecified ankle and joints of unspecified foot Coding Level of Care Code New Pt Level 3 (53893) Diagnoses Left ankle sprain S93.402A Hematoma and contusion T14.8XXA
[2025-02-26 09:22] VITALS: BMI 24.5
--- OUTSIDE RECORDS SUMMARY | 2025-02-26 09:35 | XMS_ITS | Clinical Summary ---
Author Organization [facility] Address [address] [phone] Phone Care Team Providers Care Program Specialist Name Role Phone Nishant Dowd Primary Care Provider [phone] Allergies Active Allergy Reactions Criticality Noted Date [...] Office Visit [facility] [address] [phone] Kali Higginbotham MD Stage 3a chronic kidney disease (HCC) (Primary Dx); Polycystic kidney, not otherwise specified; Nephrolithiasis; Hypertension 11/27/2024 Orders Only [facility] [address] [phone] Kali Higginbotham MD Stage 3a chronic kidney [...] Office Visit [facility] [address] [phone] Kali Higginbotham MD [address] [phone] Health Maintenance Due Date Last [...] complete this topic Insurance Medicaid [place] Medicaid [place] Care Teams Program Specialist Relationship Specialty Start Date End Date NoemíNishant [address] [place] [address] PCP - General 03/22/23
== END 2025-02-26 09:53 | disposition home or self-care (01) ==
LOC: HO.HOS 09:04
PROVIDERS: PCP Internal Medicine; Visit Provider Physician Assistant
DX: S93.402A Sprain of unspecified ligament of left ankle, initial encounter (principal); T14.8XXA Other injury of unspecified body region, initial encounter
CPT/HCPCS: 99203

== ENCOUNTER 2025-02-26 09:04 | Outpatient (REF) | payer OTHER, SELFPAY | END 2025-02-26 09:05 | disposition home or self-care (01) | LOC: HO.HOSX 09:04 | PROVIDERS: PCP Internal Medicine; Visit Provider Physician Assistant | DX: M25.572 Pain in left ankle and joints of left foot (principal); S93.402A Sprain of unspecified ligament of left ankle, initial encounter; S90.32XA Contusion of left foot, initial encounter; W18.30XA Fall on same level, unspecified, initial encounter; Y93.9 Activity, unspecified; Y92.000 Kitchen of unspecified non-institutional (private) residence as the place of occurrence of the external cause; Y99.9 Unspecified external cause status | CPT/HCPCS: 99202 ==

== ENCOUNTER 2025-03-18 08:54 | Emergency (ER) | payer OTHER, SELFPAY ==
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
[2025-03-18 08:56] VITALS: BP 118/90; PULSE 101; RESP 16; TEMP 36.7; O2SAT 98; BMI 23.9
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
--- NOTE | 2025-03-18 09:05 | PC.NURSE ---
DESIRAE Díaz at bedside for primary ED provider evaluation.
[2025-03-18] MEDS: oxyCODONE HCl Immed Release 5 MG TABLET PO (09:20)
[2025-03-18] MEDS: diazePAM 2 MG TABLET PO (09:20)
--- NOTE | 2025-03-18 09:23 | PC.NURSE ---
Patient medicated per provider orders with Oxycodone 5mg & Valium 2mg PO for 10 out of 10 pain to left leg, right shoulder, and back. CT scan and Xray ordered. Care ongoing by this RN.
--- NOTE | 2025-03-18 09:46 | PC.NURSE ---
Returned from radiology. Awaiting read/results. Patient talking on the phone at this time with a friend. Calm/cooperative. Heat pack given for comfort.
[2025-03-18 10:53] VITALS: BP 130/84; PULSE 78; RESP 18; TEMP 36.3; O2SAT 99
[2025-03-18 11:16] VITALS: BP 130/84; PULSE 78; RESP 18; TEMP 36.3; O2SAT 99
== END 2025-03-18 11:16 | disposition home or self-care (01) ==
PROVIDERS: Emergency Provider Emergency Medicine; PCP Internal Medicine
DX: S70.02XA Contusion of left hip, initial encounter (principal); S09.90XA Unspecified injury of head, initial encounter; M25.562 Pain in left knee; M25.552 Pain in left hip; R51.9 Headache, unspecified; R11.0 Nausea; X58.XXXA Exposure to other specified factors, initial encounter; Y93.9 Activity, unspecified; Y92.9 Unspecified place or not applicable; Y99.0 Civilian activity done for income or pay; Z79.899 Other long term (current) drug therapy
CPT/HCPCS: 70450; 73502; 73564; 99284

== ENCOUNTER → 2025-03-18 09:15 | Outpatient (BNV) | payer OTHER, SELFPAY | PROVIDERS: Emergency Provider Emergency Medicine; PCP Internal Medicine; Visit Provider Radiology Diagnostic Radiology | DX: S09.90XA Unspecified injury of head, initial encounter (principal); R51.9 Headache, unspecified; M17.12 Unilateral primary osteoarthritis, left knee; S70.02XA Contusion of left hip, initial encounter; W19.XXXA Unspecified fall, initial encounter | CPT/HCPCS: 70450; 73502; 73564 ==

== ENCOUNTER 2025-03-28 21:39 | Emergency (ER) | payer OTHER, SELFPAY ==
--- NOTE | ~2025-03-28 | US_ITS ---
CLINICAL HISTORY: Recent Trauma; Swelling; Pain Venous duplex ultrasound left lower extremity Comparison: US/SR - US VENOUS DUPLEX LE BI - 02/20/25 13:20 EDT Findings: The visualized deep veins are fully compressible with normal Doppler color flow and spectral tracings. No popliteal cyst. IMPRESSION: 1. Negative for left lower extremity deep vein thrombosis. This document has been electronically signed by: Chetan Mcguire MD on 03/28/2025 22:55:44
[2025-03-28 21:43] VITALS: BP 137/83; PULSE 88; RESP 14; TEMP 36.4; O2SAT 99; BMI 25.7
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
--- OUTSIDE RECORDS SUMMARY | 2025-03-28 22:04 | XMS_ITS | Clinical Summary ---
Author Organization [address] Building Address [address] [place] [address] Phone Care Team Providers [employer] Inspector Name Role Phone Nishant Dowd MD Primary Care Provider [phone] Allergies Active Allergy Reactions Criticality Noted Date [...] 90 each 1 5 05/06/20 25 Active SUMAtriptan [...] wheezing. Cough 18 g 1 5 Active famotidine (PEPCID) 20 mg tablet Take 1 tablet (20 mg total) by mouth 2 (two) times a day. TOME DARLIN TABLETA DOS VECES AL CECILIO 180 tablet 1 5 Active famotidine (PEPCID) 20 mg tablet TOME DARLIN TABLETA DOS VECES AL D A Active gabapentin (NEURONTIN) 100 mg capsule TAKE 1 CAPSULE BY MOUTH AT BEDTIME. 90 capsule 1 5 Active Active Problems Problem Noted [...] kidney disease) stage 3, GFR 30-59 ml/min (CMS/[facility] V24, CMS/[facility] V28) 03/14/2021 Nephrolithiasis 09/11/2019 Essential hypertension 11/14/2018 Overview (10/05/2024): Last Assessment & Plan: The patient has a history of arterial hypertension. The patient's blood pressure today was noted to be well controlled. We'll continue the current antihypertensive medication regimen. ADPKD (autosomal dominant polycystic kidney dise ase) 01/11/2018 Immunizations Name Administration Dates Next Due Influenza, Unspecified 07/08/2023 [facility] SARS-CoV-2 COVID -19, vector-nr, [id number], preservative free 04/23/2021 [employer] SARS-CoV-2 COVID-19, mRNA, LNP-S, preservative free 06/21/2023,11/07/2021 Surgical History Surgery Date Site/Laterality Comments CHOLECYSTECTOMY 1996 PROCEDURE: MA CHOLECYSTECTOMY OTHER SURGICAL HISTORY 07/01/2018 PROCEDURE: ---- [...] PCV) 1980 Zoster Vaccines (1 of 2) 1980 Cervical Cancer Screening: Pap Smear 07/08/2020 07/08/2017, 07/08/2017 RSV Immunization Adult Patients (1 - Risk 60-74 years 1-dose series) 2021 HIV Screening 09/05/2022 Social Influencers of Health Screening 09/05/2022 COVID-19 Vaccine ( season) 2024 06/21/2023, 11/07/2021, 04/23/2021 Depression Screening 02/17/2025 02/18/2024 Influenza Vaccine (Season Ended) 2025 07/08/2023, 08/05/2021, 07/17/2020, Additional history exists Colorectal Cancer Screening: Colonoscopy 06/12/2025 06/12/2020 Hypertension/CHF/CAD [...] age to complete this topic Meningococcal B Vaccine Aged Out No l onger eligible based on patient's age to complete this topic RSV Immunization Patients Under 20 months Aged Out No longer eligible based on patient's age to complete this topic Varicella Vaccines Aged Out No longer eligible based on patient's age to complete this topic Procedures Procedure Name Priority Date/Time Associated Diagnosis Comments EXTERNAL XRAY REPORT 03/18/2025 EXTERNAL XRAY REPORT 03/18/2025 EXTERNAL XRAY REPORT 03/18/2025 EXTERNAL XRAY REPORT 03/18/[address] REPORT 03/18/2025 MG MAMMO DIGITAL SCREENING BILAT Routine 11/20/2024 9:25 AM EST Encounter for screening mammogram for malignant neoplasm of breast COMPREHENSIVE METABOLIC PANEL Routine 11/17/2024 9:57 AM EST Health maintenance examination LIPID PANEL WITH REFLEX TO DIRECT LDL Routine 11/17/2024 9:57 AM EST Health maintenance examination DEPRESSION SCREENING Routine 02/18/2024 COLONOSCOPY Routine 06/12/2020 HEPATITIS C SCREENING Routine 12/16/2017 HPV Routine 07/08/2017 from Last 3 Months or Most Recently Relevant to Health Maintenance Results * External Xray Report (03/18/2025) Only the most recent of4 resultswithin the time period is included. Anatomical Region Laterality Modality Radiographic Lolis ging us Provider [facility] XR PROCEDURES Final Result * External CT Report (03/18/2025) Anatomical Region Laterality Modality Computed Tomogra phy us Provider [facility] CT PROCEDURES Final Result * MG Mammo Digital Screening bilat (11/20/2024 9:25 AM EST) Anatomical Region Laterality Modality Breast Bilateral Mammography 11/22/2024 10:2 3 AM EST Impressions 11/22/2024 10:32 AM EST No mammographic evidence of malignancy. Unable to locate prior's. A negative mammogram in the presence of a clinically suspicious palpable abnormality does not preclude the possibility of malignancy or alter the indications for biopsy. ASSESSMENT: BI-RADS 2: BENIGN RECOMMENDATION(S): 1: Routine screening mammogram BILATERAL in 1 year. -------- FINAL REPORT -------- Dictated By: Que Parker Dictated Date: 11/22/2024 10:23 ET Assigned Physician: Que Parker Reviewed and Electronically Signed By: Que Parker Signed Date: 11/22/2024 10:32 ET Workstation ID: [id number] Transcribed By: Self Edit Transcribed Date: 11/22/2024 10:23 ET Narrative 11/22/2024 10:32 AM EST EXAM: SCREENING MAMMOGRAPHY, BILATERAL HISTORY: SCREENING. No additional history. COMPARISON: None available TECHNIQUE: Synthesized CC and MLO projections of each breast. Tomosynthesis of each breast in the CC and MLO projections. ADDITIONAL IMAGING: None Computer-aided detection was employed with the [employer] profound AI 3-D. TISSUE DENSITY: The breasts are heterogeneously dense, which may obscure small masses. (BI-RADS category C) FINDINGS: RIGHT BREAST: No suspicious mass. No suspicious calcification. No distortion. Circumscribed equal density 0.7 cm oval mass superficial inferior right breast 5 cm from the nipple with typically benign features. LEFT BREAST: No suspicious mass. No suspicious calcification. No distortion. No additional suspicious left breast findings Procedure Note Que Parker MD - 11/22/2024 EXAM: SCREENING MAMMOGRAPHY, BILATERAL HISTORY: SCREENING. No additional history. COMPARISON: None available TECHNIQUE: Synthesized CC and MLO projections of each breast.Tomosynthesis of each breast in the CC and MLO projections. ADDITIONAL IMAGING: None Computer-aided detection was employed with the [employer] profound AI 3-D. TISSUE DENSITY: The breasts [...] Signed Date: 11/22/2024 10:32 ET Workstation ID: [id number] Transcribed By: Self Edit Transcribed Date: 11/22/2024 10:23 ET us Joe ESPINAL IMG BI PROCEDURES Final Result * (ABNORMAL) Lipid panel with reflex to direct LDL (11/17/2024 9:57 AM EST) Cholesterol 215(H) 0 - 200 mg/dL LAB CHEMISTRY METHOD 11/17/2024 4:[address] [facility] Triglycerides 294(H) 0 - 150 mg/dL LAB CHEMISTRY METHOD 11/17/2024 4:[address] [facility] HDL 55 >=40 mg/dL LAB CHEMISTRY METHOD 11/17/2024 4:[address] [facility] LDL Calculated 101(H) 0 - 100 mg/dL LAB CHEMISTRY METHOD 11/17/2024 4:[address] [facility] VLDL Cholesterol Gustavo 58.8 mg/dL LAB CHEMISTRY METHOD 11/17/2024 4:[address] [facility] Non HDL Chol. (LDL+VLDL) 160(H) <145 mg/dL LAB CHEMISTRY METHOD 11/17/2024 4:[address] [facility] Chol/HDL Ratio 3.9 0.0 - 4.4 LAB CHEMISTRY METHOD 11/17/2024 4:[address] [facility] Blood Venous blood specimen / Unknown Venipuncture / Unknown 11/17/2024 9:57 AM EST 11/17/2024 9:57 AM EST us Joe ESPINAL LAB BLOOD ORDERABLES Fi nal Result [facility] [address] [place] [address], [place] [phone] * (ABNORMAL) Comprehensive metabolic panel (11/17/2024 9:57 AM EST) Sodium 142 133 - 145 mmol/L LAB CHEMISTRY METHOD 11/17/2024 4:55 PM [facility] Potassium 4.0 3.5 - 5.5 mmol/L LAB CHEMISTRY METHOD 11/17/2024 4:55 PM [facility] Chloride 105 96 - 110 mmol/L LAB CHEMISTRY METHOD 11/17/2024 4:55 PM [facility] CO2 29 21 - 32 mmol/L LAB CHEMISTRY METHOD 11/17/2024 4:55 PM [facility] Anion Gap 8 3 - 11 LAB CHEMISTRY METHOD 11/17/2024 4:55 PM [facility] Glucose 96 70 - 100 mg/dL LAB CHEMISTRY METHOD 11/17/2024 4:55 PM [facility] BUN 29(H) 5 - 25 mg/dL LAB CHEMISTRY METHOD 11/17/2024 4:55 PM [facility] Creatinine 1.56(H) 0.50 - 1.10 mg/dL LAB CHEMISTRY METHOD 11/17/2024 4:55 PM [facility] eGFR 37(L) >=60 mL/min/1. 73m2 LAB CHEMISTRY METHOD 11/17/2024 4:55 PM [facility] Comment:Calculation based on the Chronic Kidney Disease Epidemiology Collaboration (CKD-EPI) equation refit without adjustment for race. BUN/Creatinine Ratio 18.6 LAB CHEMISTRY METHOD 11/17/2024 4:55 PM [facility] Calcium 10.1 8.5 - 10.5 mg/dL LAB CHEMISTRY METHOD 11/17/2024 4:55 PM [facility] AST (SGOT) 17 10 - 42 unit/L LAB CHEMISTRY METHOD 11/17/2024 4:55 PM [facility] ALT (SGPT) 24 10 - 60 unit/L LAB CHEMISTRY METHOD 11/17/2024 4:55 PM [facility] Alkaline Phosphatase 85 42 - 121 unit/L LAB CHEMISTRY METHOD 11/17/2024 4:[address] [facility] Total Protein 7.5 6.0 - 8.0 g/dL LAB CHEMISTRY METHOD 11/17/2024 4:[address] [facility] Albumin 4.1 3.2 - 5.0 g/dL LAB CHEMISTRY METHOD 11/17/2024 4:[address] [facility] Total Bilirubin 0.3 0.0 - 1.4 mg/dL LAB CHEMISTRY METHOD 11/17/2024 4:[address] [facility] Blood Venous blood specimen / Unknown Venipuncture / Unknown 11/17/2024 9:57 AM EST 11/17/2024 9:57 AM EST Joe ESPINAL LAB BLOOD ORDERABLES Fi nal Result [facility] [address] [place] [address], * Depression Screening (02/18/2024) [facility] Depression Screening abstracted [facility] Provider HEALTH MAINTENANCE Final Result * Colonoscopy (06/12/2020) [facility] Colonoscopy no interpretation , abstracted Anatomical Region Laterality Modality Other [facility] Provider HEALTH MAINTENANCE Final Result * Hepatitis C Screening (12/16/2017) [facility] Hepatitis C Screening abstracted Historical Provider HEALTH MAINTENANCE Final Result * Cervical Cancer Screening: HPV (07/08/2017) [facility] Cervical Cancer Screening: HPV negative, abstracted Historical Provider HEALTH MAINTENANCE Final Result from Last 3 Months or Most Recently Relevant to Health Maintenance Insurance [place]ICA[place] - [place] Care Teams [employer] Inspector Relationship Specialty Start Date End Date Nishant Dowd MD [address] [place] [id number] PCP - General Internal Medicine 02/04/22
[2025-03-28 23:16] VITALS: BP 153/91; PULSE 73; RESP 16; TEMP 36.8; O2SAT 98
[2025-03-29] VITALS: BP 153/91; PULSE 73; RESP 16; TEMP 36.8; O2SAT 98
== END 2025-03-29 00:01 | disposition home or self-care (01) ==
PROVIDERS: Emergency Provider Emergency Medicine
DX: S80.12XA Contusion of left lower leg, initial encounter (principal); M79.605 Pain in left leg; Y04.0XXA Assault by unarmed brawl or fight, initial encounter; Y93.F9 Activity, other caregiving; Y92.9 Unspecified place or not applicable; Y99.9 Unspecified external cause status
CPT/HCPCS: 93971; 99284

== ENCOUNTER → 2025-03-28 21:55 | Outpatient (BNV) | payer OTHER, SELFPAY | PROVIDERS: Emergency Provider Emergency Medicine; Visit Provider Radiology Vascular & Interventional Radiology | DX: M25.572 Pain in left ankle and joints of left foot (principal); R22.42 Localized swelling, mass and lump, left lower limb | CPT/HCPCS: 93971 ==